=== PATIENT | male | born 1975 | race Two or more races ===

== ENCOUNTER 2020-09-28 14:07 | Inpatient (IN) | payer BC, SELFPAY ==
[2020-09-28] VITALS (15 sets, daily range): BP systolic 125–219; BP diastolic 89–124; PULSE 74–108; RESP 16–20; TEMP 36.4–36.6; O2SAT 96–98; BMI 32.3
--- NOTE | 2020-09-28 14:25 | ED.GENADULT ---
HPI - General Adult General Chief complaint: Chest Pain <DUC Stallings - Last Filed: 09/28/20 14:29> Stated complaint: high blood pressure,covid test pending <DUC Stallings - Last Filed: 09/28/20 14:29> Time Seen by Provider: 09/28/20 14:25 <DUC Stallings - Last Filed: 09/28/20 14:29> Source: patient <Yasmin Limon MD - Last Filed: 09/28/20 23:23> Mode of arrival: ambulatory <Yasmin Limon MD - Last Filed: 09/28/20 23:23> Limitations: no limitations <Yasmin Limon MD - Last Filed: 09/28/20 23:23> History of Present Illness HPI narrative: Patient was sent to the emergency room from [facility]. Patient states he went to [facility] to get a COVID test that he needs for work. Patient states he is asymptomatic, has no chest pain, no shortness of breath, no respiratory symptoms. Patient states that any time he feels some chest discomfort is if he is wearing a mask, but he is not wearing it, has no symptoms at all. When he arrived to the emergency room, it was noted that the patient has a high blood pressure. Patient has not been seen by a doctor in many years, has no past medical history, he was not aware that he has high blood pressure. <Yasmin Limon MD - Last Filed: 09/28/20 23:23> MD complaint: COVID swab, asymptomatic high blood pressure <Yasmin Limon MD - Last Filed: 09/28/20 23:23> Related Data Allergies/adverse reactions: Allergies Allergy/AdvReac Type Severity Reaction Status Date / Time No Known Allergies Allergy Verified 09/28/20 14:24 <DUC Stallings - Last Filed: 09/28/20 14:29> Review of Systems Review of Systems: Constitutional : No Weight loss, No Fever, No Chills, No Night Sweats, No Fatigue, No Malaise ENT/Mouth : No Hearing loss, No Ear Pain, No Nasal Congestion, No Sinus Pain, No Hoarseness, No sore throat, No Rhinorrhea, No Swallowing Difficulty Eyes: No Eye Pain, No Swelling, No Redness, No Foreign Body, No Discharge, No Vision Changes Cardiovascular : Mild central chest pain only while wearing a mask, No SOB, No Dyspnea on Exertion, No Orthopnea, No Edema, No Palpitations Respiratory : No Cough, No Sputum, No Wheezing, No Smoke Exposure, No Dyspnea Gastrointestinal : No Nausea, No Vomiting, No Diarrhea, No Constipation, No abdominal Pain, No Hematochezia, No Melena Genitourinary : no irregular bleeding, No Dysuria, No Urinary Frequency, No Hematuria, No Urinary Incontinence, No Urgency, No Flank Pain, No Urinary Flow Changes, No Hesitancy Musculoskeletal : No joint pain, No Myalgias, No Joint Swelling Skin : No Skin Lesions, No rash Neuro : No Weakness, No Numbness, No Paresthesias, No Loss of Consciousness, No Dizziness, No Headache Psych : No Anxiety/Panic, No Depression, No SI/HI/AH/VH, No Social Issues, Heme/Lymph: No Bruising, No Bleeding,No Lymphadenopathy Endocrine : No Polyuria, No Polydipsia, No Temperature Intolerance <Yasmin Limon MD - Last Filed: 09/28/20 23:23> [facility] Past Medical History Medical History: Medical History Healthy adult <DUC Stallings - Last Filed: 09/28/20 14:29> Social History Social History: Social History Alcohol intake: never Smoking Status: Never smoker Use of substances other than those prescribed or required for medical reasons: No Advance Directives: No Advance Directives Information Provided: Yes <DUC Stallings - Last Filed: 09/28/20 14:29> Physical Exam Vital Signs: Vital Signs: Last Vital Signs Temp 98 F 09/28/20 19:10 Pulse 86 09/28/20 22:39 Resp 16 09/28/20 22:20 BP 206/124 H 09/28/20 22:39 Pulse Ox 96 09/28/20 22:18 Body Mass Index 32.3 <DUC Stallings - Last Filed: 09/28/20 14:29> Vital Signs: Last Vital Signs Temp 98 F 09/28/20 19:10 Pulse 86 09/28/20 22:39 Resp 16 09/28/20 22:20 BP 206/124 H 09/28/20 22:39 Pulse Ox 96 09/28/20 22:18 Body Mass Index 32.3 <Yasmin Limon MD - Last Filed: 09/28/20 23:23> Appearance: Alert. Oriented X3. No acute distress. Eyes: Pupils equal, round and reactive to light. ENT: Pharynx normal. Neck: Normal inspection. Neck supple. No lymph nodes noted. No crepitus CVS: Normal heart rate and rhythm. Pulses normal. Normal S1 and S2 Respiratory: No respiratory distress. Breath sounds normal. No Wheezing. No rales Abdomen: Soft and nontender. No rigidity. No distention. good BS x4 Skin: Skin warm and dry. Normal skin color. Normal skin turgor. Extremities: No lower extremity edema. No lower extremity edema. No Lacerations. No Rash Neuro: Oriented X 3. No motor deficit. No sensory deficit. Moving all extermities. No slurred speech. <Yasmin Limon MD - Last Filed: 09/28/20 23:23> Course Course Course Narrative: 45 y/o male with history of former alcohol use, former smoker who presents with mild chest discomfort (3/10) x3 days (worse when wearing a mask) and severe HTN that was found at [facility] today. Presented there for COVID swab after potential exposure 6 days ago. BP 218/120 there - BP 219/124. HR 104. He appears well. EKG, labs ordered. Management per primary provider in the ED. <DUC Stallings - Last Filed: 09/28/20 14:29> Patient's blood pressure has been uncontrolled. Patient received 2 doses of 100 mg p.o. labetalol, blood pressure did not improve, 50 mg of hydralazine p.o., but pressure did not improve, 10 mg of IV labetalol, blood pressure actually increased to 212/112. Patient has now a nitro paste patch and is on IV hydralazine. Patient is asymptomatic. However, his BNP is 500 and he does EKG changes in leads aVL , V5 and V6. Patient does not want to stay in the hospital, I discussed with the patient the risks of having a blood pressure this high along with new onset signs of heart failure and EKG changes. Patient grudgingly accepted to stay for admission. I discussed the above-mentioned with our hospitalist, Dr. Clarke admitted the patient pending blood pressure control to an acceptable level (180 systolic) for floor admission <Yasmin Limon MD - Last Filed: 09/28/20 23:23> Medical Decision Making Lab Data Result diagrams: : 09/28/20 16:17 09/28/20 16:17 <DUC Stallings - Last Filed: 09/28/20 14:29> Labs: Lab Results 09/28/20 09/28/20 09/28/20 Range/Units 16:17 16:17 16:17 WBC 8.0 (4.8-10.8) X10*3/uL RBC 5.72 (4.60-5.80) X10*6/uL Hgb 16.6 (14.0-18.0) g/dl Hct 49.7 (42-52) % MCV 86.9 (80-98) fL MCH 29.0 (27.0-33.0) pg MCHC 33.4 (31.0-36.0) g/dl RDW 13.2 (11.0-16.0) % Plt Count 180 (160-400) X10*3/uL MPV 12.4 (9.4-12.4) fL Immature Gran % (Auto) Cancelled Neut % (Auto) Cancelled Lymph % (Auto) Cancelled [place] % (Auto) Cancelled Eos % (Auto) Cancelled Baso % (Auto) Cancelled Lymph # (Auto) Cancelled [place] # (Auto) Cancelled Eos # (Auto) Cancelled Baso # (Auto) Cancelled Abs Immat Gran (auto) Cancelled Absolute Neuts (auto) Cancelled Absolute Nucleated RBC 0.000 (0.0-0.012) X10*3/uL Nucleated RBC % (auto) 0.0 (0.0-0.2) /100WBC Neutrophils % (Manual) 75 H (45-73) % Band Neutrophils % 0 L (3-5) % Lymphocytes % (Manual) 18 L (20-40) % Monocytes % (Manual) 7 (2-11) % Abs Neuts (Manual) 6.0 (2.2-7.9) X10*3/uL Lymphocytes # (Manual) 1.4 (0.6-4.8) X10*3/uL Monocytes # (Manual) 0.6 (0.0-1.2) X10*3/uL Platelet Estimate NORMAL (NORMAL) Plt Morphology Comment NORMAL RBC Morphology NORMAL Hold Blue Top SEE NOTE Sodium 139 (135-145) mmol/L Potassium 3.4 (3.3-5.1) mmol/l Chloride 103 (96-108) mmol/L Carbon Dioxide 27 (22-29) mmol/L Anion Gap 12 (12-20) BUN 16 (9-16) mg/dL Creatinine 1.16 (0.5-1.4) mg/dL Estim Creat Clear Calc 95.2 Estimated GFR > 60 Random Glucose 98 (60-115) mg/dL Calcium 8.8 (8.4-10.2) mg/dL Magnesium 2.3 (1.6-2.6) mg/dL Total Bilirubin 0.3 (0.0-1.0) mg/dL Direct Bilirubin 0.2 (0.0-0.5) mg/dL AST 16 (5-37) U/L ALT 9 (0-40) U/L Alkaline Phosphatase 82 (39-117) U/L Troponin I High Sens (<3.5-35.0) ng/L B-Natriuretic Peptide (<100) pg/mL Total Protein 7.2 (6.5-8.0) g/dL Albumin 4.3 (3.5-5.0) g/dL Coronavirus (PCR) (Negative) Influenza Type A (PCR) (Negative) Influenza Type B (PCR) (Negative) RSV RNA Qual (PCR) (Negative) 09/28/20 09/28/20 09/28/20 Range/Units 16:17 16:17 16:17 WBC (4.8-10.8) X10*3/uL RBC (4.60-5.80) X10*6/uL Hgb (14.0-18.0) g/dl Hct (42-52) % MCV (80-98) fL MCH (27.0-33.0) pg MCHC (31.0-36.0) g/dl RDW (11.0-16.0) % Plt Count (160-400) X10*3/uL MPV (9.4-12.4) fL Immature Gran % (Auto) Neut % (Auto) Lymph % (Auto) [place] % (Auto) Eos % (Auto) Baso % (Auto) Lymph # (Auto) [place] # (Auto) Eos # (Auto) Baso # (Auto) Abs Immat Gran (auto) Absolute Neuts (auto) Absolute Nucleated RBC (0.0-0.012) X10*3/uL Nucleated RBC % (auto) (0.0-0.2) /100WBC Neutrophils % (Manual) (45-73) % Band Neutrophils % (3-5) % Lymphocytes % (Manual) (20-40) % Monocytes % (Manual) (2-11) % Abs Neuts (Manual) (2.2-7.9) X10*3/uL Lymphocytes # (Manual) (0.6-4.8) X10*3/uL Monocytes # (Manual) (0.0-1.2) X10*3/uL Platelet Estimate (NORMAL) Plt Morphology Comment RBC Morphology Hold Blue Top Sodium (135-145) mmol/L Potassium (3.3-5.1) mmol/l Chloride (96-108) mmol/L Carbon Dioxide (22-29) mmol/L Anion Gap (12-20) BUN (9-16) mg/dL Creatinine (0.5-1.4) mg/dL Estim Creat Clear Calc Estimated GFR Random Glucose (60-115) mg/dL Calcium (8.4-10.2) mg/dL Magnesium (1.6-2.6) mg/dL Total Bilirubin (0.0-1.0) mg/dL Direct Bilirubin (0.0-0.5) mg/dL AST (5-37) U/L ALT (0-40) U/L Alkaline Phosphatase (39-117) U/L Troponin I High Sens 42.4 H (<3.5-35.0) ng/L B-Natriuretic Peptide 520 H (<100) pg/mL Total Protein (6.5-8.0) g/dL Albumin (3.5-5.0) g/dL Coronavirus (PCR) NEGATIVE (Negative) Influenza Type A (PCR) NEGATIVE (Negative) Influenza Type B (PCR) NEGATIVE (Negative) RSV RNA Qual (PCR) NEGATIVE (Negative) 09/28/20 Range/Units 21:14 WBC (4.8-10.8) X10*3/uL RBC (4.60-5.80) X10*6/uL Hgb (14.0-18.0) g/dl Hct (42-52) % MCV (80-98) fL MCH (27.0-33.0) pg MCHC (31.0-36.0) g/dl RDW (11.0-16.0) % Plt Count (160-400) X10*3/uL MPV (9.4-12.4) fL Immature Gran % (Auto) Neut % (Auto) Lymph % (Auto) [place] % (Auto) Eos % (Auto) Baso % (Auto) Lymph # (Auto) [place] # (Auto) Eos # (Auto) Baso # (Auto) Abs Immat Gran (auto) Absolute Neuts (auto) Absolute Nucleated RBC (0.0-0.012) X10*3/uL Nucleated RBC % (auto) (0.0-0.2) /100WBC Neutrophils % (Manual) (45-73) % Band Neutrophils % (3-5) % Lymphocytes % (Manual) (20-40) % Monocytes % (Manual) (2-11) % Abs Neuts (Manual) (2.2-7.9) X10*3/uL Lymphocytes # (Manual) (0.6-4.8) X10*3/uL Monocytes # (Manual) (0.0-1.2) X10*3/uL Platelet Estimate (NORMAL) Plt Morphology Comment RBC Morphology Hold Blue Top Sodium (135-145) mmol/L Potassium (3.3-5.1) mmol/l Chloride (96-108) mmol/L Carbon Dioxide (22-29) mmol/L Anion Gap (12-20) BUN (9-16) mg/dL Creatinine (0.5-1.4) mg/dL Estim Creat Clear Calc Estimated GFR Random Glucose (60-115) mg/dL Calcium (8.4-10.2) mg/dL Magnesium (1.6-2.6) mg/dL Total Bilirubin (0.0-1.0) mg/dL Direct Bilirubin (0.0-0.5) mg/dL AST (5-37) U/L ALT (0-40) U/L Alkaline Phosphatase (39-117) U/L Troponin I High Sens 46.8 H (<3.5-35.0) ng/L B-Natriuretic Peptide (<100) pg/mL Total Protein (6.5-8.0) g/dL Albumin (3.5-5.0) g/dL Coronavirus (PCR) (Negative) Influenza Type A (PCR) (Negative) Influenza Type B (PCR) (Negative) RSV RNA Qual (PCR) (Negative) <DUC Stallings - Last Filed: 09/28/20 14:29> Lab Results 09/28/20 09/28/20 09/28/20 Range/Units 16:17 16:17 16:17 WBC 8.0 (4.8-10.8) X10*3/uL RBC 5.72 (4.60-5.80) X10*6/uL Hgb 16.6 (14.0-18.0) g/dl Hct 49.7 (42-52) % MCV 86.9 (80-98) fL MCH 29.0 (27.0-33.0) pg MCHC 33.4 (31.0-36.0) g/dl RDW 13.2 (11.0-16.0) % Plt Count 180 (160-400) X10*3/uL MPV 12.4 (9.4-12.4) fL Immature Gran % (Auto) Cancelled Neut % (Auto) Cancelled Lymph % (Auto) Cancelled [place] % (Auto) Cancelled Eos % (Auto) Cancelled Baso % (Auto) Cancelled Lymph # (Auto) Cancelled [place] # (Auto) Cancelled Eos # (Auto) Cancelled Baso # (Auto) Cancelled Abs Immat Gran (auto) Cancelled Absolute Neuts (auto) Cancelled Absolute Nucleated RBC 0.000 (0.0-0.012) X10*3/uL Nucleated RBC % (auto) 0.0 (0.0-0.2) /100WBC Neutrophils % (Manual) 75 H (45-73) % Band Neutrophils % 0 L (3-5) % Lymphocytes % (Manual) 18 L (20-40) % Monocytes % (Manual) 7 (2-11) % Abs Neuts (Manual) 6.0 (2.2-7.9) X10*3/uL Lymphocytes # (Manual) 1.4 (0.6-4.8) X10*3/uL Monocytes # (Manual) 0.6 (0.0-1.2) X10*3/uL Platelet Estimate NORMAL (NORMAL) Plt Morphology Comment NORMAL RBC Morphology NORMAL Hold Blue Top SEE NOTE Sodium 139 (135-145) mmol/L Potassium 3.4 (3.3-5.1) mmol/l Chloride 103 (96-108) mmol/L Carbon Dioxide 27 (22-29) mmol/L Anion Gap 12 (12-20) BUN 16 (9-16) mg/dL Creatinine 1.16 (0.5-1.4) mg/dL Estim Creat Clear Calc 95.2 Estimated GFR > 60 Random Glucose 98 (60-115) mg/dL Calcium 8.8 (8.4-10.2) mg/dL Magnesium 2.3 (1.6-2.6) mg/dL Total Bilirubin 0.3 (0.0-1.0) mg/dL Direct Bilirubin 0.2 (0.0-0.5) mg/dL AST 16 (5-37) U/L ALT 9 (0-40) U/L Alkaline Phosphatase 82 (39-117) U/L Troponin I High Sens (<3.5-35.0) ng/L B-Natriuretic Peptide (<100) pg/mL Total Protein 7.2 (6.5-8.0) g/dL Albumin 4.3 (3.5-5.0) g/dL Coronavirus (PCR) (Negative) Influenza Type A (PCR) (Negative) Influenza Type B (PCR) (Negative) RSV RNA Qual (PCR) (Negative) 09/28/20 09/28/20 09/28/20 Range/Units 16:17 16:17 16:17 WBC (4.8-10.8) X10*3/uL RBC (4.60-5.80) X10*6/uL Hgb (14.0-18.0) g/dl Hct (42-52) % MCV (80-98) fL MCH (27.0-33.0) pg MCHC (31.0-36.0) g/dl RDW (11.0-16.0) % Plt Count (160-400) X10*3/uL MPV (9.4-12.4) fL Immature Gran % (Auto) Neut % (Auto) Lymph % (Auto) [place] % (Auto) Eos % (Auto) Baso % (Auto) Lymph # (Auto) [place] # (Auto) Eos # (Auto) Baso # (Auto) Abs Immat Gran (auto) Absolute Neuts (auto) Absolute Nucleated RBC (0.0-0.012) X10*3/uL Nucleated RBC % (auto) (0.0-0.2) /100WBC Neutrophils % (Manual) (45-73) % Band Neutrophils % (3-5) % Lymphocytes % (Manual) (20-40) % Monocytes % (Manual) (2-11) % Abs Neuts (Manual) (2.2-7.9) X10*3/uL Lymphocytes # (Manual) (0.6-4.8) X10*3/uL Monocytes # (Manual) (0.0-1.2) X10*3/uL Platelet Estimate (NORMAL) Plt Morphology Comment RBC Morphology Hold Blue Top Sodium (135-145) mmol/L Potassium (3.3-5.1) mmol/l Chloride (96-108) mmol/L Carbon Dioxide (22-29) mmol/L Anion Gap (12-20) BUN (9-16) mg/dL Creatinine (0.5-1.4) mg/dL Estim Creat Clear Calc Estimated GFR Random Glucose (60-115) mg/dL Calcium (8.4-10.2) mg/dL Magnesium (1.6-2.6) mg/dL Total Bilirubin (0.0-1.0) mg/dL Direct Bilirubin (0.0-0.5) mg/dL AST (5-37) U/L ALT (0-40) U/L Alkaline Phosphatase (39-117) U/L Troponin I High Sens 42.4 H (<3.5-35.0) ng/L B-Natriuretic Peptide 520 H (<100) pg/mL Total Protein (6.5-8.0) g/dL Albumin (3.5-5.0) g/dL Coronavirus (PCR) NEGATIVE (Negative) Influenza Type A (PCR) NEGATIVE (Negative) Influenza Type B (PCR) NEGATIVE (Negative) RSV RNA Qual (PCR) NEGATIVE (Negative) 09/28/20 Range/Units 21:14 WBC (4.8-10.8) X10*3/uL RBC (4.60-5.80) X10*6/uL Hgb (14.0-18.0) g/dl Hct (42-52) % MCV (80-98) fL MCH (27.0-33.0) pg MCHC (31.0-36.0) g/dl RDW (11.0-16.0) % Plt Count (160-400) X10*3/uL MPV (9.4-12.4) fL Immature Gran % (Auto) Neut % (Auto) Lymph % (Auto) [place] % (Auto) Eos % (Auto) Baso % (Auto) Lymph # (Auto) [place] # (Auto) Eos # (Auto) Baso # (Auto) Abs Immat Gran (auto) Absolute Neuts (auto) Absolute Nucleated RBC (0.0-0.012) X10*3/uL Nucleated RBC % (auto) (0.0-0.2) /100WBC Neutrophils % (Manual) (45-73) % Band Neutrophils % (3-5) % Lymphocytes % (Manual) (20-40) % Monocytes % (Manual) (2-11) % Abs Neuts (Manual) (2.2-7.9) X10*3/uL Lymphocytes # (Manual) (0.6-4.8) X10*3/uL Monocytes # (Manual) (0.0-1.2) X10*3/uL Platelet Estimate (NORMAL) Plt Morphology Comment RBC Morphology Hold Blue Top Sodium (135-145) mmol/L Potassium (3.3-5.1) mmol/l Chloride (96-108) mmol/L Carbon Dioxide (22-29) mmol/L Anion Gap (12-20) BUN (9-16) mg/dL Creatinine (0.5-1.4) mg/dL Estim Creat Clear Calc Estimated GFR Random Glucose (60-115) mg/dL Calcium (8.4-10.2) mg/dL Magnesium (1.6-2.6) mg/dL Total Bilirubin (0.0-1.0) mg/dL Direct Bilirubin (0.0-0.5) mg/dL AST (5-37) U/L ALT (0-40) U/L Alkaline Phosphatase (39-117) U/L Troponin I High Sens 46.8 H (<3.5-35.0) ng/L B-Natriuretic Peptide (<100) pg/mL Total Protein (6.5-8.0) g/dL Albumin (3.5-5.0) g/dL Coronavirus (PCR) (Negative) Influenza Type A (PCR) (Negative) Influenza Type B (PCR) (Negative) RSV RNA Qual (PCR) (Negative) <Yasmin Limon MD - Last Filed: 09/28/20 23:23> Imaging Data Chest x-ray: Radiologist's impression: FINDINGS: The cardiac and mediastinal contours are normal. The lungs are clear. There is no pleural effusion or pneumothorax. There are degenerative changes of the spine. XR/XR chest 1V IMPRESSION: Unremarkable examination. <Yasmin Limon MD - Last Filed: 09/28/20 23:23> ECG Data Attestation: I personally reviewed and interpreted this ECG as follows: (Sinus rhythm, heart rate 69, QTC 443, nonspecific ST changes in leads aVL, V5 and V6) <Yasmin Limon MD - Last Filed: 09/28/20 23:23> Discharge Plan Discharge Clinical Impression: Hypertensive urgency, ST segment changes on electrocardiogram <DUC Stallings - Last Filed: 09/28/20 14:29> Patient Disposition: Admitted As Inpatient <DUC Stallings - Last Filed: 09/28/20 14:29>
--- NOTE | 2020-09-28 14:30 | ECG_ITS ---
Test Reason : CHEST PAIN Blood Pressure : / mmHG Vent. Rate : 069 BPM Atrial Rate : 069 BPM P-R Int : 184 ms QRS Dur : 104 ms QT Int : 414 ms P-R-T Axes : 059 -02 137 degrees QTc Int : 443 ms Normal sinus rhythm Left ventricular hypertrophy with repolarization abnormality Abnormal ECG No previous ECGs available Referred By: Eve Flores Electronically Signed By:DOMINGO REYNOLDS
--- NOTE | 2020-09-28 14:30 | XR_ITS ---
EXAMINATION: XR CHEST CLINICAL INFORMATION: Chest pain COMPARISON: None TECHNIQUE: Frontal view of the chest was obtained. FINDINGS: The cardiac and mediastinal contours are normal. The lungs are clear. There is no pleural effusion or pneumothorax. There are degenerative changes of the spine. XR/XR chest 1V IMPRESSION: Unremarkable examination.
[2020-09-28] MEDS: Labetalol HCL 100 MG TABLET PO ×2 (16:22→17:37)
[2020-09-28 16:27] LABS: Hematocrit 49.7 % (42-52); Hemoglobin 16.6 g/dl (14.0-18.0); Mean Corpuscular HGB Conc 33.4 g/dl (31.0-36.0); Mean Corpuscular Volume 86.9 fL (80-98); Mean Platelet Volume 12.4 fL (9.4-12.4); Platelet Count 180 X10*3/uL (160-400); Red Blood Count 5.72 X10*6/uL (4.60-5.80); Red Cell Distribution Width 13.2 % (11.0-16.0)
[2020-09-28 16:35] LABS: WBC ABN SCTR FOR CBC 1
[2020-09-28 16:49] LABS: Alanine Aminotransferase 9 U/L (0-40); Albumin Level 4.3 g/dL (3.5-5.0); Alkaline Phosphatase 82 U/L (39-117); Anion Gap 12 (12-20); Aspartate Amino Transferase 16 U/L (5-37); Bilirubin Direct 0.2 mg/dL (0.0-0.5); Bilirubin Total 0.3 mg/dL (0.0-1.0); Blood Urea Nitrogen 16 mg/dL (9-16); Calcium 8.8 mg/dL (8.4-10.2); Carbon Dioxide 27 mmol/L (22-29); Chloride 103 mmol/L (96-108); Creatinine Clr Calc Pharmacy 95.2; Estimated Glomerular Filt Rate > 60; Glucose Random 98 mg/dL (60-115); Magnesium 2.3 mg/dL (1.6-2.6); Potassium 3.4 mmol/l (3.3-5.1); Sodium 139 mmol/L (135-145); Total Protein 7.2 g/dL (6.5-8.0)
[2020-09-28 16:50] LABS: Lymphocytes Absolute Manual 1.4 X10*3/uL (0.6-4.8); Lymphocytes Percent Manual 18 % (20-40); Monocytes Absolute Manual 0.6 X10*3/uL (0.0-1.2); Monocytes Percent Manual 7 % (2-11); Neutrophils Percent Manual 75 % (45-73); Platelet Estimate NORMAL (NORMAL); Platelet Morphology Comment NORMAL; RBC Morphology NORMAL
[2020-09-28 16:52] LABS: B Type Natriuretic Peptide 520 pg/mL (<100)
[2020-09-28 16:54] LABS: Troponin-I High Sensitivity 42.4 ng/L (<3.5-35.0)
[2020-09-28 17:05] LABS: Influenza A PCR NEGATIVE (Negative); Influenza B PCR NEGATIVE (Negative); Resp Syncy Virus RNA Qual PCR NEGATIVE (Negative); SARS COV2 PCR INHOUSE NEGATIVE (Negative)
[2020-09-28 18:28] LABS: Band Neutrophils Percent 0 % (3-5)
[2020-09-28] MEDS: hydrALAZINE HCl 50 MG TABLET PO (19:06)
[2020-09-28 22:09] LABS: Troponin-I High Sensitivity 46.8 ng/L (<3.5-35.0)
[2020-09-28] MEDS: Labetalol HCL 100 MG/20 ML VIAL 10 MG IVPUSH (22:39)
[2020-09-28] MEDS: Nitroglycerin 2 % Oint 1 GM Packet 1 INCH TRANSDERMA (23:53)
[2020-09-28] MEDS: hydrALAZINE HCl 20 MG/ML VIAL IVPUSH (23:53)
[2020-09-29] VITALS (18 sets, daily range): BP systolic 152–199; BP diastolic 61–116; PULSE 87–107; RESP 13–22; TEMP 36.9–37.2; O2SAT 97–98
--- NOTE | 2020-09-29 00:05 | PC.NURSE ---
report from radha rodrigues. pt in no pain or distress, pt placed on quality assurance monitor chassis. pt awre of plans for admission.
--- NOTE | 2020-09-29 01:15 | PC.NURSE ---
pt ambulatory to bathroom with steady gait, felt hot following nitro paste administration. pt given sandwich and juice, per his request.
[2020-09-29 01:46] LABS: Glucose Urine UA NEG (NEG); Leukocyte Esterase Urine NEG (NEG); Nitrite Urine NEG (NEG); Specific Gravity - Urine 1.025 (1.005-1.025); Urine Blood NEG (NEG); Urine Ketones 5 MG/DL (NEG); Urine Protein NEG (NEG-TRACE)
[2020-09-29 01:47] LABS: Appearance Urine CLEAR; Color Urine YELLOW; UACC Culture Trigger NO
--- NOTE | 2020-09-29 02:12 | ECG_ITS ---
Test Reason : EKG CHANGE Blood Pressure : / mmHG Vent. Rate : 091 BPM Atrial Rate : 091 BPM P-R Int : 160 ms QRS Dur : 112 ms QT Int : 396 ms P-R-T Axes : 059 012 162 degrees QTc Int : 487 ms Normal sinus rhythm Left ventricular hypertrophy with repolarization abnormality Prolonged QT Abnormal ECG When compared with ECG of 28-SEP-2020 18:03, Inverted T waves have replaced nonspecific T wave abnormality in Inferior leads Referred By: Yasmin Limon Electronically Signed By:DOMINGO REYNOLDS
--- NOTE | 2020-09-29 02:26 | PC.NURSE ---
pt sitting on side of bed, pt feels nauseous.
[2020-09-29] MEDS: ondansetron HCL 4 MG/2 ML VIAL IVPUSH (02:34)
--- NOTE | 2020-09-29 06:23 | CA_ITS ---
Transthoracic Echocardiogram Patient (Last, First, Middle): Jonathan Wong, Gender: Male Date of : 1975 Age: 45 Procedure Date: 09/29/2020 Procedure Type: Transthoracic Echocardiogram Location: ER Height: 177.8 cm Weight: 102.06 kg BSA: 2.19 m2 Heart Rate: bpm BP: 158 / 99 mmHg [employer] Operator: Referring MD: Noemi Clarke MD Symptoms: CHF exacerbation Study Quality: Good ECG Rhythm: Sinus Conclusions: - The left ventricular systolic function is mildly decreased. The visually estimated ejection fraction is between 45-50%. - There is severely increased left ventricular wall thickness. - No obvious valvular pathology seen on this study. Findings Left Ventricle Normal left ventricular cavity size. There is severely increased left ventricular wall thickness. The left ventricular systolic function is mildly decreased. The visually estimated ejection fraction is between 45-50%. E/E prime ratio is between 8 and 15 consistent with indeterminate filling pressures. Evidence suggests grade I (mild) diastolic dysfunction. Right Ventricle Normal right ventricular cavity size and systolic function. Atria The left atrium is mildly dilated. The right atrium is normal in size. Aortic Valve There is a normal trileaflet aortic valve. There is no aortic valve stenosis. There is no aortic valve regurgitation. Mitral Valve The mitral valve appears normal. There is no mitral valve regurgitation. There is no mitral valve stenosis. Pulmonic Valve The pulmonic valve was not well visualized. Tricuspid Valve Normal tricuspid valve structure. There is trace tricuspid valve regurgitation. The pulmonary artery systolic pressure is normal. Great Vessels The aortic annulus, sinuses of valsalva, and asc aorta are normal in size. Venous The inferior vena cava is normal in size and collapses greater than 50% with inspiration. Pericardium/Pleural There is no evidence of pericardial effusion. Prior Study Comparison No prior study available for comparison. Recommendations, Care & Conclusions No obvious valvular pathology seen on this study. Measurements 2D Linear Measurements IVSd: 1.93 0.6-0.9/0.6-1.0 cm LVIDd: 5.68 3.9-5.3/4.2-5.9 cm LVIDd Index: 2.59 2.4-3.2/2.2-3.1 cm/m2 LVIDs: 4.48 2.0-3.6 cm LVPWd: 1.96 0.7-1.1 cm Ao Root: 3.50 2.1-3.5 cm LA Diam: 4.50 2.7-3.8/3.0-4.0 cm LAIDs Index: 2.05 1.5-2.3 cm/m2 LV Mass: 720.95 67-162/88-224 g LV Mass Index: 329.20 43-95/49-115 g/m2 LVOT Diam: 2.60 3.0+(-)1.3 cm 2D Systolic Function EF 4C: 49.80 >55% EF 2C: 39.90 >55% EF BiP: 45.10 >55% Mitral Valve MV Pk E: 0.62 MV PK A: 0.94 MV Decel Time: 134.00 E/A: 0.70 E'Lateral: 5.71 E'Medial: 4.93 E/E' Med: 12.60 E/E' Lat: 10.90 PHT: 39.00 MVA PHT: 5.64 Decel Butler: 4.64 Aortic Valve AoV Pk John: 1.52 AoV Mn John: 1.14 AoV VTI: 0.27 AoV Pk Grad: 9.00 Aov Mn Grad: 6.00 SIM Cont.VTI: 4.37 LVOT LVOT Pk John: 1.00 LVOT Mn John: 0.60 LVOT VTI: 0.22 LVOT Pk Grad: 4.00 LVOT Mn Grad: 2.00 LVOT Diam: 2.60 LVOT Area: 5.31 Diastolic Function MV Pk E: 0.62 MV Pk A: 0.94 E/A: 0.70 E'Medial: 4.93 E/E' Med: 12.60 E' Laterial: 5.71 E/E' Lat: 10.90 Tricuspid Valve TR Pk John: 1.73 TR Pk Grad: 12.00 RA Press: 3.00 RVSP: 15.00 Great Vessels Aorta Ao Root-2D: 3.50 2.0-3.7 cm Ao Asc: 3.60 2.1-3.4 cm Pulmonary Valve PV Pk John: 1.18 Peak PV Grad: 6.00 Updated in Other Vendor System with Status of Final Lexx Banks MD electronically signed on 09/29/2020 11:45:43 AM with status of Final
--- NOTE | 2020-09-29 06:37 | PC.NURSE ---
HOSPITALIST CALLED AND ASKED US TO REMOVE NITRO PASTE, PT WILL START TAKING LISINIPRIL 5MG.
[2020-09-29] MEDS: Enoxaparin Sodium 40 MG/0.4 ML SYRINGE SUBCUT (07:23)
--- NOTE | 2020-09-29 07:43 | PC.NURSE ---
report taken from paresh rodrigues pt here for hypertension uncontrolled. no known medication hx, admitted as inpt. vss, medicated per emar. pt ate all of breakfast, appears in good spirits, all needs met at this time. wctm.
--- NOTE | 2020-09-29 08:24 | PM.IMHP ---
History of Present Illness Date of Service: 09/29/20 Chief Complaint: hypertension This is a 45-year-old male with no significant past medical history who presents to the hospital after a visit to urgent care for routine COVID test to return to work found him to be hypertensive. Patient reports that he has not been to a doctor since he was a teenager. He has has been having complaints of shortness of breath on exertion and fatigue but otherwise has no lower extremity swelling, no orthopnea, no PND, he has no headache, no change in vision, no chest pain, no palpitations, he has no dizziness, no urinary symptoms, no suprapubic or flank pain. Per urgent care report patient had a blood pressure of 200/124 on the arrival to their office. On arrival to our ED patient had blood pressure 178/99, heart rate of 82, respiratory rate of 16, satting 97% on room air. He received multiple doses of PO antihypertensive, and also receive nitro paste as well as IV hydralazine with improvement of his BP Labs sig for trop of 42.4->46.8, and BNP of 520 CXR unremarkable EKG shows ST depressions and t-wave inversions in the lateral leads [id number] Past medical history: Denies Past surgical history: Denies Family history: Denies Social history: Comes from home, former tobacco user, currently denies tobacco alcohol or illicit drugs [facility] Medical History Healthy adult Social History Alcohol intake: never Smoking Status: Never smoker Use of substances other than those prescribed or required for medical reasons: No Advance Directives: No Advance Directives Information Provided: Yes Meds Allergies Allergy/AdvReac Type Severity Reaction Status Date / Time seafood Allergy Hives Verified 09/29/20 00:04 Home Medications Medication Instructions Recorded Confirmed Type No Known Home Meds 09/29/20 09/29/20 History Physical Exam Vital Signs and Narrative: Vital Signs: Last Vital Signs Temp 98 F 09/28/20 19:10 Pulse 90 09/29/20 06:36 Resp 13 09/29/20 06:36 BP 158/99 H 09/29/20 06:36 Pulse Ox 97 09/29/20 06:36 Body Mass Index 32.3 Const: General: cooperative and no acute distress Orientation/consciousness: patient oriented x3 Eyes: General: appearance normal, both eyes and all related structures Resp: Effort & Inspection: normal respiratory effort and able to speak in complete sentences Cardio: Rate: regular rate Rhythm: regular rhythm GI: Palpation (GI): Soft to palpation Auscultation: normal bowel sounds Skin: General skin exam: no rashes or lesions noted Neuro: General: patient oriented x3 Cognition (Neuro): normal cognition Extrem: General: Yes normal to inspection and Yes no pedal edema Results Labs CBC and Chem 7: 09/28/20 16:17 09/28/20 16:17 Labs: Laboratory Results - last 24 hr 09/28/20 09/28/20 09/28/20 16:17 16:17 16:17 MCV 86.9 MCH 29.0 MCHC 33.4 RDW 13.2 Plt Count 180 MPV 12.4 Immature Gran % (Auto) Cancelled Neut % (Auto) Cancelled Lymph % (Auto) Cancelled [place] % (Auto) Cancelled Eos % (Auto) Cancelled Baso % (Auto) Cancelled Lymph # (Auto) Cancelled [place] # (Auto) Cancelled Eos # (Auto) Cancelled Baso # (Auto) Cancelled Abs Immat Gran (auto) Cancelled Absolute Neuts (auto) Cancelled Absolute Nucleated RBC 0.000 Nucleated RBC % (auto) 0.0 Neutrophils % (Manual) 75 H Band Neutrophils % 0 L Lymphocytes % (Manual) 18 L Monocytes % (Manual) 7 Abs Neuts (Manual) 6.0 Lymphocytes # (Manual) 1.4 Monocytes # (Manual) 0.6 Platelet Estimate NORMAL Plt Morphology Comment NORMAL RBC Morphology NORMAL Hold Blue Top SEE NOTE Anion Gap 12 Estim Creat Clear Calc 95.2 Estimated GFR > 60 Random Glucose 98 Calcium 8.8 Magnesium 2.3 Total Bilirubin 0.3 Direct Bilirubin 0.2 AST 16 ALT 9 Alkaline Phosphatase 82 Troponin I High Sens B-Natriuretic Peptide Total Protein 7.2 Albumin 4.3 Urine Color Urine Appearance Urine pH Ur Specific [place] Urine Protein Urine Glucose (UA) Urine Ketones Urine Blood Urine Nitrite Ur Leukocyte Esterase Coronavirus (PCR) Influenza Type A (PCR) Influenza Type B (PCR) RSV RNA Qual (PCR) 09/28/20 09/28/20 09/28/20 16:17 16:17 16:17 MCV MCH MCHC RDW Plt Count MPV Immature Gran % (Auto) Neut % (Auto) Lymph % (Auto) [place] % (Auto) Eos % (Auto) Baso % (Auto) Lymph # (Auto) [place] # (Auto) Eos # (Auto) Baso # (Auto) Abs Immat Gran (auto) Absolute Neuts (auto) Absolute Nucleated RBC Nucleated RBC % (auto) Neutrophils % (Manual) Band Neutrophils % Lymphocytes % (Manual) Monocytes % (Manual) Abs Neuts (Manual) Lymphocytes # (Manual) Monocytes # (Manual) Platelet Estimate Plt Morphology Comment RBC Morphology Hold Blue Top Anion Gap Estim Creat Clear Calc Estimated GFR Random Glucose Calcium Magnesium Total Bilirubin Direct Bilirubin AST ALT Alkaline Phosphatase Troponin I High Sens 42.4 H B-Natriuretic Peptide 520 H Total Protein Albumin Urine Color Urine Appearance Urine pH Ur Specific [place] Urine Protein Urine Glucose (UA) Urine Ketones Urine Blood Urine Nitrite Ur Leukocyte Esterase Coronavirus (PCR) NEGATIVE Influenza Type A (PCR) NEGATIVE Influenza Type B (PCR) NEGATIVE RSV RNA Qual (PCR) NEGATIVE 09/28/20 09/29/20 21:14 01:30 MCV MCH MCHC RDW Plt Count MPV Immature Gran % (Auto) Neut % (Auto) Lymph % (Auto) [place] % (Auto) Eos % (Auto) Baso % (Auto) Lymph # (Auto) [place] # (Auto) Eos # (Auto) Baso # (Auto) Abs Immat Gran (auto) Absolute Neuts (auto) Absolute Nucleated RBC Nucleated RBC % (auto) Neutrophils % (Manual) Band Neutrophils % Lymphocytes % (Manual) Monocytes % (Manual) Abs Neuts (Manual) Lymphocytes # (Manual) Monocytes # (Manual) Platelet Estimate Plt Morphology Comment RBC Morphology Hold Blue Top Anion Gap Estim Creat Clear Calc Estimated GFR Random Glucose Calcium Magnesium Total Bilirubin Direct Bilirubin AST ALT Alkaline Phosphatase Troponin I High Sens 46.8 H B-Natriuretic Peptide Total Protein Albumin Urine Color YELLOW Urine Appearance CLEAR Urine pH 6.0 Ur Specific [place] 1.025 Urine Protein NEG Urine Glucose (UA) NEG Urine Ketones 5 Urine Blood NEG Urine Nitrite NEG Ur Leukocyte Esterase NEG Coronavirus (PCR) Influenza Type A (PCR) Influenza Type B (PCR) RSV RNA Qual (PCR) Imaging Radiologist's Impressions: Impressions Chest X-Ray 09/28/20 14:30 IMPRESSION: Unremarkable examination. Assessment and Plan (1) Hypertensive urgency: Status: Acute (2) ST segment changes on electrocardiogram: Status: Acute (3) Elevated troponin: Status: Acute 45-year-old male with no significant past medical history that he no off presents to the hospital with hypertensive crisis found to have elevated troponin and elevated BNP # hypertensive emergency - presents to the hospital with BP of 2 10s over 124 hour at urgent care, here blood pressure 1 up to 200/124 - patient received multiple doses of p.o. labetalol, hydralazine, as well as nitropaste as well as IV hydralazine with improvement in his blood pressure - patient has elevated troponin, BNP Plan: - will start him on lisinopril low-dose - echocardiogram - consult cardiology # elevated troponin - most likely type 2 in the setting of hypertensive crisis - as above with no chest pain - EKG shows ST depressions in V5-V6 Plan: - echocardiogram - consult cardiology # elevated BNP - has no evidence of CHF exacerbation - will obtain echocardiogram - as patient has no evidence of CHF and no shortness of breath,or hypoxia will hold off on starting him on diuretic pending cardiology recommendation DVT prophylaxis: Lovenox
--- NOTE | 2020-09-29 09:41 | PC.NURSE ---
dr ndiaye at bedside for eval.
--- NOTE | 2020-09-29 09:49 | PC.NURSE ---
retail salesworker at bedside for eval.
--- NOTE | 2020-09-29 10:20 | PC.NURSE ---
perinatal tech at bedside for us.
--- NOTE | 2020-09-29 10:31 | PC.NURSE ---
echo completed at bedside.
--- NOTE | 2020-09-29 10:38 | P.CONCA_ITS ---
History of Present Illness History of Present Illness Date of Service: 09/29/20 Consult reason: hypertension Chief complaint: Hypertensive emergency Narrative: This is a cardiology consultation for uncontrolled hypertension. Patient has not really seen a doctor for many years. He apparently went for routine COVID test to return to work. At that time, he was apparently found to be markedly hypertensive with systolics in the 200s and diastolics of almost 120 mm Hg. Subsequently, he was sent to the ER. Patient states that he had a very vague chest pain in the substernal area but no other complaints. Per H and P, he was also having shortness of breath but when I questioned him, he states that he felt okay from that regard. Otherwise no known cardiac problems like coronary disease or myocardial infarction or anything else. He states that he was markedly overweight and has lost more than 50 lb. Otherwise he works in [employer] company. No illicit drugs. Review of Systems Review of Systems: Yes all other systems are reviewed and are negative Cardiovascular: Cardiovascular: Reports as per HPI, Reports no additional cardiovascular complaints, Denies acrocyanosis, Denies cool extremities, Denies painful fingertips, Reports chest pain, Denies chest pain at rest, Denies diaphoresis, Denies syncope, Denies irregular heart rhythm, Denies claudication, Denies leg edema, Denies lightheadedness, Denies palpitations and Reports dyspne a Respiratory: Respiratory: Reports dyspnea Neurologic: Denies syncope Endocrine: Endocrine: Denies palpitations PMFSH Past Medical History Medical History Healthy adult Family History Pertinent family history: No significant family history for cardiac per patient. Social History Social History Alcohol intake: never Smoking Status: Never smoker Use of substances other than those prescribed or required for medical reasons: No Advance Directives: No Advance Directives Information Provided: Yes Meds Allergies Allergy/AdvReac Type Severity Reaction Status Date / Time seafood Allergy Hives Verified 09/29/20 00:04 Home Medications Medication Instructions Recorded Confirmed Type No Known Home Meds 09/29/20 09/29/20 History Physical Exam Vital Signs: Vital Signs: Last Vital Signs Temp 98 F 09/28/20 19:10 Pulse 91 09/29/20 08:59 Resp 13 09/29/20 06:36 BP 158/99 H 09/29/20 08:59 Pulse Ox 97 09/29/20 06:36 Body Mass Index 32.3 Const: General: cooperative, comfortable and no acute distress Orientation/consciousness: patient oriented x3 HENMT: Other: Unremarkable Neck: Neck: Yes normal visual inspection Chest: Chest palpation & inspection: normal inspection of the chest Resp: Auscultation: clear to auscultation bilaterally, no crackles and no wheezes Cardio: Jugular venous distension: no JVD Palpation: normal PMI Heart sounds: S1 normal heart sound present, S2 normal heart sound present, no gallops, Murmur heart sound present systolic early, I/ and at the right sternal border and no rubs GI: Palpation (GI): Soft to palpation Back/Spine/Pelvis: Other: unremarkable Skin: General skin exam: no rashes or lesions noted Neuro: General: patient oriented x3 Extrem: General: Yes no clubbing, cyanosis or edema Psych: Mental Status: mental status grossly normal Results Labs and Meds Result diagrams: 09/28/20 16:17 09/28/20 16:17 Lab results: Laboratory Results - last 24 hr 09/28/20 09/28/20 09/28/20 16:17 16:17 16:17 WBC 8.0 RBC 5.72 Hgb 16.6 Hct 49.7 MCV 86.9 MCH 29.0 MCHC 33.4 RDW 13.2 Plt Count 180 MPV 12.4 Immature Gran % (Auto) Cancelled Neut % (Auto) Cancelled Lymph % (Auto) Cancelled [place] % (Auto) Cancelled Eos % (Auto) Cancelled Baso % (Auto) Cancelled Lymph # (Auto) Cancelled [place] # (Auto) Cancelled Eos # (Auto) Cancelled Baso # (Auto) Cancelled Abs Immat Gran (auto) Cancelled Absolute Neuts (auto) Cancelled Absolute Nucleated RBC 0.000 Nucleated RBC % (auto) 0.0 Neutrophils % (Manual) 75 H Band Neutrophils % 0 L Lymphocytes % (Manual) 18 L Monocytes % (Manual) 7 Abs Neuts (Manual) 6.0 Lymphocytes # (Manual) 1.4 Monocytes # (Manual) 0.6 Platelet Estimate NORMAL Plt Morphology Comment NORMAL RBC Morphology NORMAL Hold Blue Top SEE NOTE Sodium 139 Potassium 3.4 Chloride 103 Carbon Dioxide 27 Anion Gap 12 BUN 16 Creatinine 1.16 Estim Creat Clear Calc 95.2 Estimated GFR > 60 Random Glucose 98 Calcium 8.8 Magnesium 2.3 Total Bilirubin 0.3 Direct Bilirubin 0.2 AST 16 ALT 9 Alkaline Phosphatase 82 Troponin I High Sens B-Natriuretic Peptide Total Protein 7.2 Albumin 4.3 Urine Color Urine Appearance Urine pH Ur Specific [place] Urine Protein Urine Glucose (UA) Urine Ketones Urine Blood Urine Nitrite Ur Leukocyte Esterase Coronavirus (PCR) Influenza Type A (PCR) Influenza Type B (PCR) RSV RNA Qual (PCR) 09/28/20 09/28/20 09/28/20 16:17 16:17 16:17 WBC RBC Hgb Hct MCV MCH MCHC RDW Plt Count MPV Immature Gran % (Auto) Neut % (Auto) Lymph % (Auto) [place] % (Auto) Eos % (Auto) Baso % (Auto) Lymph # (Auto) [place] # (Auto) Eos # (Auto) Baso # (Auto) Abs Immat Gran (auto) Absolute Neuts (auto) Absolute Nucleated RBC Nucleated RBC % (auto) Neutrophils % (Manual) Band Neutrophils % Lymphocytes % (Manual) Monocytes % (Manual) Abs Neuts (Manual) Lymphocytes # (Manual) Monocytes # (Manual) Platelet Estimate Plt Morphology Comment RBC Morphology Hold Blue Top Sodium Potassium Chloride Carbon Dioxide Anion Gap BUN Creatinine Estim Creat Clear Calc Estimated GFR Random Glucose Calcium Magnesium Total Bilirubin Direct Bilirubin AST ALT Alkaline Phosphatase Troponin I High Sens 42.4 H B-Natriuretic Peptide 520 H Total Protein Albumin Urine Color Urine Appearance Urine pH Ur Specific [place] Urine Protein Urine Glucose (UA) Urine Ketones Urine Blood Urine Nitrite Ur Leukocyte Esterase Coronavirus (PCR) NEGATIVE Influenza Type A (PCR) NEGATIVE Influenza Type B (PCR) NEGATIVE RSV RNA Qual (PCR) NEGATIVE 09/28/20 09/29/20 21:14 01:30 WBC RBC Hgb Hct MCV MCH MCHC RDW Plt Count MPV Immature Gran % (Auto) Neut % (Auto) Lymph % (Auto) [place] % (Auto) Eos % (Auto) Baso % (Auto) Lymph # (Auto) [place] # (Auto) Eos # (Auto) Baso # (Auto) Abs Immat Gran (auto) Absolute Neuts (auto) Absolute Nucleated RBC Nucleated RBC % (auto) Neutrophils % (Manual) Band Neutrophils % Lymphocytes % (Manual) Monocytes % (Manual) Abs Neuts (Manual) Lymphocytes # (Manual) Monocytes # (Manual) Platelet Estimate Plt Morphology Comment RBC Morphology Hold Blue Top Sodium Potassium Chloride Carbon Dioxide Anion Gap BUN Creatinine Estim Creat Clear Calc Estimated GFR Random Glucose Calcium Magnesium Total Bilirubin Direct Bilirubin AST ALT Alkaline Phosphatase Troponin I High Sens 46.8 H B-Natriuretic Peptide Total Protein Albumin Urine Color YELLOW Urine Appearance CLEAR Urine pH 6.0 Ur Specific [place] 1.025 Urine Protein NEG Urine Glucose (UA) NEG Urine Ketones 5 Urine Blood NEG Urine Nitrite NEG Ur Leukocyte Esterase NEG Coronavirus (PCR) Influenza Type A (PCR) Influenza Type B (PCR) RSV RNA Qual (PCR) ECG Attestation: I personally reviewed and interpreted this ECG as follows: Interpretation: EKG shows sinus rhythm at 69/Min with left ventricular hypertrophy/strain pattern. Imaging Radiologist's impression: Impressions Chest X-Ray 09/28/20 14:30 IMPRESSION: Unremarkable examination. Assessment and Plan (1) Hypertensive urgency: Status: Acute (2) ST segment changes on electrocardiogram: Status: Acute (3) Elevated troponin: Status: Acute Blood pressure trends were reviewed. Initial blood pressure upon arrival was 219/124 mm Hg. Most recent blood pressure is much better than that. Labs show an elevated cardiac BNP of 520. Troponins are slightly elevated at 42 and 46. EKG shows left ventricular hypertrophy/strain pattern. Most likely he has had longstanding hypertension that has been undiagnosed. He has received labetalol and hydralazine. He has been commenced on lisinopril 5 mg daily. He is likely going to need much higher doses. Blood pressure is currently controlled because of the IV medicines he received in the last 24 hours but most likely to rebound. Then we can go up on the lisinopril to a higher dose and then possibly use amlodipine as well. Echocardiogram for cardiac function assessment. We will follow.
--- NOTE | 2020-09-29 12:10 | PC.NURSE ---
BP'S INCREASING. PT STATES HE FEELS FINE. DENIES CP, DIZZINESS, BLURRED VISION, HEADACHE, ST ON MONITOR. THIS RN TO NOTIFY HOSPITALIST
[2020-09-29] MEDS: amLODIPine Besylate 10 MG TABLET PO (12:56)
--- NOTE | 2020-09-29 16:01 | MHC.CM.PN ---
Met with patient in regards to d/c planning. Patient lives with his , ambulates independently and had no services prior to coming to the hospital. Patient does not have a PCP. Patient states I never needed one. List of PCP's provided. Explained patient would have to list the provider as the PCP with his insurance company and then make an appointment. Patient verbalized understanding. Patient's will transport him home when medically stable. Patient requesting to be placed in a room upstairs so he can shower. 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 Patient requesting to be discharged home because I feel fine. Dr Ibarra notified. Continue to monitor for d/c needs.
--- NOTE | 2020-09-29 16:10 | PC.NURSE ---
Pt asking to leave. Case Management has recently been in touch with Hospitalist who states that pt should continue for mointoring. This rn to inform patient.
--- NOTE | 2020-09-29 17:01 | PC.NURSE ---
hospitalist at bedside. pt has blunt understanding of plan of care. will stay here. hyn meds will be altered.
[2020-09-29] MEDS: 0.9 % Sodium Chloride Flush 3 ML SYRINGE IVFLUSH (17:59)
[2020-09-29] MEDS: LORazepam 0.5 MG TABLET PO (17:59)
[2020-09-29] MEDS: traZODone HCL 25 MG HALFTAB PO (22:52)
[2020-09-30] VITALS (18 sets, daily range): BP systolic 146–190; BP diastolic 79–120; PULSE 94–110; RESP 18–26; TEMP 36.5–37.3; O2SAT 96–98; BMI 32.3
[2020-09-30] MEDS: 0.9 % Sodium Chloride Flush 3 ML SYRINGE IVFLUSH ×4 (00:43→20:11)
[2020-09-30] MEDS: hydrALAZINE HCl 20 MG/ML VIAL 10 MG IVPUSH (01:20)
--- NOTE | 2020-09-30 02:44 | PC.NURSE ---
Pt had a BP of 190/120 manually. @ 0045 on 09/30/20. Md was notified hydralazine was ordered. BP after an hr was 156/85.
[2020-09-30] MEDS: Enoxaparin Sodium 40 MG/0.4 ML SYRINGE SUBCUT (05:45)
[2020-09-30 06:28] LABS: MANUAL DIFF FLAG NO
[2020-09-30 06:47] LABS: Basophils Percent Auto 0.2 % (0-2); Eosinophils Absolute Auto 0.1 X10*3/uL (0.0-0.4); Eosinophils Percent Auto 0.6 % (0-4); Hematocrit 50.8 % (42-52); Imm Gran Abs Auto 0.03 X10*3/uL (0.00-0.03); Imm Gran Pct Auto 0.4 % (0.0-0.4); Lymphocytes Absolute Auto 1.4 X10*3/uL (1.2-4.9); Lymphocytes Percent Auto 17.5 % (20-40); Mean Corpuscular HGB Conc 33.5 g/dl (31.0-36.0); Mean Corpuscular Volume 86.5 fL (80-98); Mean Platelet Volume 12.2 fL (9.4-12.4); Monocytes Absolute Auto 0.7 X10*3/uL (0.1-1.2); Monocytes Percent Auto 8.5 % (2-11); Neutrophils Absolute Auto 5.9 X10*3/uL (2.0-8.3); Neutrophils Percent Auto 72.8 % (45-73); Platelet Count 183 X10*3/uL (160-400); Red Blood Count 5.87 X10*6/uL (4.60-5.80); Red Cell Distribution Width 13.5 % (11.0-16.0); White Blood Count 8.1 X10*3/uL (4.8-10.8)
[2020-09-30 07:24] LABS: Blood Urea Nitrogen 15 mg/dL (9-16); Creatinine Clr Calc Pharmacy 110.4; Estimated Glomerular Filt Rate > 60; Glucose Random 99 mg/dL (60-115)
[2020-09-30 07:43] LABS: Anion Gap 15 (12-20); Calcium 9.3 mg/dL (8.4-10.2); Carbon Dioxide 26 mmol/L (22-29); Chloride 103 mmol/L (96-108); Potassium 4.2 mmol/l (3.3-5.1); Sodium 140 mmol/L (135-145)
[2020-09-30] MEDS: amLODIPine Besylate 10 MG TABLET PO (08:39)
--- NOTE | 2020-09-30 10:32 | PC.NURSE ---
Pt BP 168/103 at 0800, pt medicated with 10mg Norvasc and 5mg Lisinopril, pt BP rechecked at 1008 and found to be 188/96, MD Ibarra made aware.
--- NOTE | 2020-09-30 13:10 | MHC.CM.PN ---
DP Male 45 dx hypertensive emergency. DP is home no services. Pt will arrange for transportation. CM will follow.
--- NOTE | 2020-09-30 15:06 | HO.PM.IMPN ---
Subjective Subjective Date of Service: 09/30/20 Interval History: htn uncontrolled Physical Exam Vital Signs: Vital Signs: Last Vital Signs Temp 97.9 F 09/30/20 12:00 Pulse 100 09/30/20 12:00 Resp 26 H 09/30/20 12:00 BP 171/104 H 09/30/20 12:00 Pulse Ox 97 09/30/20 12:00 Body Mass Index 32.3 Physical exam: Consideration: not in acute distress, pleasant. HEENT: Neck supple Eyes: Anicteric, no discharge. Cvs: rrr, [id number] , no murmur res: clear to auscultation ,no rhonchii or wheezing abd: no rebound or guarding ,nt, bs present. ext pulses present , no cyanosis neuro: axo3 , nonfocal. Objective Data Current Medications Generic Name Dose Route Start Last Admin Trade Name Freq PRN Reason Stop Dose Admin Acetaminophen 650 mg 09/29/20 06:23 Acetaminophen 325 Mg Tablet PO Q6H PRN Pain, Mild (Pain Scale 1-3) Amlodipine Besylate 10 mg 09/29/20 13:00 09/30/20 08:39 Amlodipine Besylate 10 Mg Tablet PO 10 mg DAILY [facility] Administration Protocol Docusate Sodium 100 mg 09/29/20 06:23 Docusate Sodium 100 Mg Capsule PO DAILY PRN Constipation Enoxaparin Sodium 40 mg 09/29/20 06:30 09/30/20 05:45 Enoxaparin Sodium 40 Mg/0.4 Ml Syringe SUBCUT 40 mg Q24H [facility] Administration Lisinopril 5 mg 09/29/20 09:00 09/30/20 08:39 Lisinopril 5 Mg Tablet PO 5 mg DAILY [facility] Administration Protocol Ondansetron HCl 4 mg 09/29/20 06:23 Ondansetron Hcl 4 Mg/2 Ml Vial IVPUSH Q8H PRN Nausea and Vomiting Sodium Chloride 3 ml 09/29/20 08:00 09/30/20 08:39 0.9 % Sodium Chloride Flush 3 Ml Syringe IVFLUSH 3 ml QSHIFT [facility] Administration Labs CBC & Chem 7: 09/30/20 06:16 10/02/20 09:13 Assessment and Plan (1) Hypertensive cardiomyopathy: Status: Acute Assessment and Plan: 1. uncontrolled HTn: initial blood pressure upon arrival was 219/124 mm Hg. Most recent blood pressure is much better than that but still high. Labs show an elevated cardiac BNP of 520. Troponins are slightly elevated at 42 and 46. EKG shows left ventricular hypertrophy/strain pattern. Echocardiogram with mild LV dysfunction with LVEF 45-50%; severe LVH. plan:Most likely he has had longstanding hypertension that has been undiagnosed. Continue lisinopril to 20 mg daily and amlodipine 10 mg daily. Patient refuses for subQ Lovenox he said his walking around and does not want DVT prophylaxis.
--- NOTE | 2020-09-30 16:07 | P.PNCA_ITS ---
Subjective Subjective Date of Service: 09/30/20 Interval history: Follow-up of uncontrolled hypertension. He states that he feels okay. No specific cardiac complaints like angina or shortness of breath at this time. He is not getting any dizziness or syncopal episodes from the medications. Review of Systems Review of Systems Yes all other systems are reviewed and are negative Cardiovascular: Reports no additional cardiovascular complaints, Denies chest pain, Denies chest pain at rest, Denies chest pain with activity, Denies syncope, Denies rapid heart rate, Denies pedal edema, Denies edema, Denies leg edema, Denies lightheadedness, Denies dyspnea and Denies dyspnea on exertion Respiratory: Denies dyspnea and Denies dyspnea on exertion Denies syncope Physical Exam Vital Signs: Last Vital Signs Temp 99.2 F 09/30/20 15:16 Pulse 110 H 09/30/20 15:16 Resp 18 09/30/20 15:16 BP 170/96 H 09/30/20 15:16 Pulse Ox 98 09/30/20 15:16 Body Mass Index 32.3 Const General: cooperative, comfortable and no acute distress Orientation/consciousness: patient oriented x3 HENMT Other: Unremarkable Neck Neck: Yes normal visual inspection Chest Chest palpation & inspection: normal inspection of the chest Resp Auscultation: clear to auscultation bilaterally, no crackles and no wheezes Cardio Jugular venous distension: no JVD Palpation: normal PMI Heart sounds: S1 normal heart sound present, S2 normal heart sound present, no gallops, Murmur heart sound present systolic early, I/ and at the right sterna l border and no rubs GI Palpation (GI): Soft to palpation Back/Spine/Pelvis Other: unremarkable Skin General skin exam: no rashes or lesions noted Neuro General: patient oriented x3 Extrem General: Yes no clubbing, cyanosis or edema Psych Mental Status: mental status grossly normal Results Labs and Meds Result diagrams: 09/30/20 06:16 09/30/20 06:16 Lab results: Laboratory Results - last 24 hr 09/30/20 09/30/20 06:16 06:16 WBC 8.1 RBC 5.87 H Hgb 17.0 Hct 50.8 MCV 86.5 MCH 29.0 MCHC 33.5 RDW 13.5 Plt Count 183 MPV 12.2 Immature Gran % (Auto) 0.4 Neut % (Auto) 72.8 Lymph % (Auto) 17.5 L Clare % (Auto) 8.5 Eos % (Auto) 0.6 Baso % (Auto) 0.2 Lymph # (Auto) 1.4 Clare # (Auto) 0.7 Eos # (Auto) 0.1 Baso # (Auto) 0.0 Abs Immat Gran (auto) 0.03 Absolute Neuts (auto) 5.9 Absolute Nucleated RBC 0.000 Nucleated RBC % (auto) 0.0 Sodium 140 Potassium 4.2 D Chloride 103 Carbon Dioxide 26 Anion Gap 15 BUN 15 Creatinine 1.00 Estim Creat Clear Calc 110.4 Estimated GFR > 60 Random Glucose 99 Calcium 9.3 Progress Note: A&P Assessment and plan (1) Hypertensive urgency: Status: Acute (2) ST segment changes on electrocardiogram: Status: Acute (3) Elevated troponin: Status: Acute (4) Hypertensive cardiomyopathy: Status: Acute Assessment and Plan: Blood pressure trends were reviewed. Initial blood pressure upon arrival was 219/124 mm Hg. Most recent blood pressure is much better than that but still high. Labs show an elevated cardiac BNP of 520. Troponins are slightly elevated at 42 and 46. EKG shows left ventricular hypertrophy/strain pattern. Echocardiogram with mild LV dysfunction with LVEF 45-50%; severe LVH. Most likely he has had longstanding hypertension that has been undiagnosed. Can increase the dosage of lisinopril to 20 mg daily. He is already on amlodipine 10 mg daily. Fall Risk Details Current Medications: Current Medications Generic Name Dose Route Start Last Admin Trade Name Freq PRN Reason Stop Dose Admin Acetaminophen 650 mg 09/29/20 06:23 Acetaminophen 325 Mg Tablet PO Q6H PRN Pain, Mild (Pain Scale 1-3) Amlodipine Besylate 10 mg 09/29/20 13:00 09/30/20 08:39 Amlodipine Besylate 10 Mg Tablet PO 10 mg DAILY GENESIS Administration Protocol Docusate Sodium 100 mg 09/29/20 06:23 Docusate Sodium 100 Mg Capsule PO DAILY PRN Constipation Enoxaparin Sodium 40 mg 09/29/20 06:30 09/30/20 05:45 Enoxaparin Sodium 40 Mg/0.4 Ml Syringe SUBCUT 40 mg Q24H GENESIS Administration Lisinopril 5 mg 09/29/20 09:00 09/30/20 08:39 Lisinopril 5 Mg Tablet PO 5 mg DAILY GENESIS Administration Protocol Ondansetron HCl 4 mg 09/29/20 06:23 Ondansetron Hcl 4 Mg/2 Ml Vial IVPUSH Q8H PRN Nausea and Vomiting Sodium Chloride 3 ml 09/29/20 08:00 09/30/20 08:39 0.9 % Sodium Chloride Flush 3 Ml Syringe IVFLUSH 3 ml QSHIFT GENESIS Administration Time Spent With Patient Time: Total time spent is greater than 50% in coordination of care (as do cumented) at patient's floor/unit and/or counseling patient: Time with patient: less than 15 minutes
[2020-10-01] VITALS (8 sets, daily range): BP systolic 134–180; BP diastolic 82–100; PULSE 85–107; RESP 18; TEMP 36.2–37.1; O2SAT 96–98
[2020-10-01] MEDS: Enoxaparin Sodium 40 MG/0.4 ML SYRINGE SUBCUT (05:57)
[2020-10-01] MEDS: amLODIPine Besylate 10 MG TABLET PO (09:05)
[2020-10-01] MEDS: LORazepam 0.5 MG TABLET PO (09:05)
[2020-10-01] MEDS: 0.9 % Sodium Chloride Flush 3 ML SYRINGE IVFLUSH ×2 (09:07→15:12)
[2020-10-01 09:44] LABS: Anion Gap 13 (12-20); Blood Urea Nitrogen 23 mg/dL (9-16); Calcium 9.8 mg/dL (8.4-10.2); Carbon Dioxide 27 mmol/L (22-29); Chloride 104 mmol/L (96-108); Creatinine Clr Calc Pharmacy 93.6; Estimated Glomerular Filt Rate > 60; Glucose Random 96 mg/dL (60-115); Potassium 5.1 mmol/l (3.3-5.1); Sodium 139 mmol/L (135-145)
[2020-10-02 04:55] VITALS: BP 168/88; PULSE 96; RESP 18; TEMP 36.6; O2SAT 98
[2020-10-02] MEDS: 0.9 % Sodium Chloride Flush 3 ML SYRINGE IVFLUSH (08:31)
[2020-10-02] MEDS: amLODIPine Besylate 10 MG TABLET PO (08:31)
[2020-10-02 08:35] VITALS: PULSE 94; RESP 20; TEMP 36.7; O2SAT 97
[2020-10-02 10:22] LABS: Anion Gap 13 (12-20); Blood Urea Nitrogen 23 mg/dL (9-16); Calcium 9.4 mg/dL (8.4-10.2); Carbon Dioxide 27 mmol/L (22-29); Chloride 101 mmol/L (96-108); Creatinine Clr Calc Pharmacy 104.2; Estimated Glomerular Filt Rate > 60; Glucose Random 91 mg/dL (60-115); Potassium 4.5 mmol/l (3.3-5.1); Sodium 136 mmol/L (135-145)
[2020-10-02] MEDS: hydroCHLOROthiazide 12.5 MG TABLET PO (11:30)
--- NOTE | 2020-10-02 11:32 | MHC.CM.PN ---
dc plan home no servcies
--- NOTE | 2020-10-02 11:36 | PM.DS ---
DS: Providers Provider Date of Service: 10/02/20 Date of admission: 09/29/20 06:23 Primary care physician: None Physician Consults: 09/29/20 06:23 Consult to Cardiology Routine Consulting Provider: Lexx Banks Reason for consultation: Elevated trop, hypertensive emergency with elevated BNP , chest pain Has provider been notified: No DS: Diagnosis Discharge Diagnosis (1) Hypertensive cardiomyopathy: Status: Acute DS: Medications Discharge Medications Home Medications: Home Medications Medication Instructions Recorded Confirmed No Known Home Meds 09/29/20 09/29/20 DS: Summary Hospital Course Hospital Course: Chief Complaint: hypertension This is a 45-year-old male with no significant past medical history who presents to the hospital after a visit to urgent care for routine COVID test to return to work found him to be hypertensive. Patient reports that he has not been to a doctor since he was a teenager. He has has been having complaints of shortness of breath on exertion and fatigue but otherwise has no lower extremity swelling, no orthopnea, no PND, he has no headache, no change in vision, no chest pain, no palpitations, he has no dizziness, no urinary symptoms, no suprapubic or flank pain. Per urgent care report patient had a blood pressure of 200/124 on the arrival to their office. On arrival to our ED patient had blood pressure 178/99, heart rate of 82, respiratory rate of 16, satting 97% on room air. He received multiple doses of PO antihypertensive, and also receive nitro paste as well as IV hydralazine with improvement of his BP Labs sig for trop of 42.4->46.8, and BNP of 520 CXR unremarkable EKG shows ST depressions and t-wave inversions in the lateral leads [id number] Past medical history: Denies Past surgical history: Denies Family history: Denies Hospital course:Patient was admitted due to elevated blood pressure and some ECG changes with mild increase in troponin. He has not been on Blood pressure medicines before this. He likely has previously undiagnosed HTN. He is started on Lisinopril and titrated up to 20 daily and Norvasc 10 and HCTZ 12. 5 mg. Cardiology saw him and think ECG changes are due to uncontrolled HTN. Echo showed no wall motion abnormalities (- The left ventricular systolic function is mildly decreased. The visually estimated ejection fraction is between 45-50%. - There is severely increased left ventricular wall thickness. - No obvious valvular pathology seen on this study. and no further work up at this time. Blood pressure is now much better. He is ask to check BP at home and follow up with PCP for further blood pressure monitoring and medication adjustement. Social history: Comes from home, former tobacco user, currently denies tobacco alcohol or illicit drugs Time Spent with Patient Time attestation: Total time spent providing and/or coordinating discharge services: Discharge coordination time: Greater than 30 minutes Physical Exam Vital Signs: Vital Signs: Last Vital Signs Temp 98.0 F 10/02/20 08:35 Pulse 94 10/02/20 08:35 Resp 20 10/02/20 08:35 BP 168/88 H 10/02/20 04:55 Pulse Ox 97 10/02/20 08:35 Body Mass Index 32.3 General: AO X 3, no acute distress Resp: CTA bilateral CVS: S1,S2,RRR GI: +BS, NT, no distention Skin: No rash Neuro: motor grossly intact Psych: appropriate affect DS: Data Data Completed and Pending Labs on day of discharge: Laboratory Tests 09/28/20 09/28/20 09/28/20 16:17 16:17 16:17 WBC 8.0 RBC 5.72 Hgb 16.6 Hct 49.7 MCV 86.9 MCH 29.0 MCHC 33.4 RDW 13.2 Plt Count 180 MPV 12.4 Immature Gran % (Auto) Cancelled Neut % (Auto) Cancelled Lymph % (Auto) Cancelled Rush % (Auto) Cancelled Eos % (Auto) Cancelled Baso % (Auto) Cancelled Lymph # (Auto) Cancelled Rush # (Auto) Cancelled Eos # (Auto) Cancelled Baso # (Auto) Cancelled Abs Immat Gran (auto) Cancelled Absolute Neuts (auto) Cancelled Absolute Nucleated RBC 0.000 Nucleated RBC % (auto) 0.0 Neutrophils % (Manual) 75 H Band Neutrophils % 0 L Lymphocytes % (Manual) 18 L Monocytes % (Manual) 7 Abs Neuts (Manual) 6.0 Lymphocytes # (Manual) 1.4 Monocytes # (Manual) 0.6 Platelet Estimate NORMAL Plt Morphology Comment NORMAL RBC Morphology NORMAL Hold Blue Top SEE NOTE Sodium 139 Potassium 3.4 Chloride 103 Carbon Dioxide 27 Anion Gap 12 BUN 16 Creatinine 1.16 Estim Creat Clear Calc 95.2 Estimated GFR > 60 Random Glucose 98 Calcium 8.8 Magnesium 2.3 Total Bilirubin 0.3 Direct Bilirubin 0.2 AST 16 ALT 9 Alkaline Phosphatase 82 Troponin I High Sens B-Natriuretic Peptide Total Protein 7.2 Albumin 4.3 Urine Color Urine Appearance Urine pH Ur Specific [place] Urine Protein Urine Glucose (UA) Urine Ketones Urine Blood Urine Nitrite Ur Leukocyte Esterase Coronavirus (PCR) Influenza Type A (PCR) Influenza Type B (PCR) RSV RNA Qual (PCR) 09/28/20 09/28/20 09/28/20 16:17 16:17 16:17 WBC RBC Hgb Hct MCV MCH MCHC RDW Plt Count MPV Immature Gran % (Auto) Neut % (Auto) Lymph % (Auto) Rush % (Auto) Eos % (Auto) Baso % (Auto) Lymph # (Auto) Rush # (Auto) Eos # (Auto) Baso # (Auto) Abs Immat Gran (auto) Absolute Neuts (auto) Absolute Nucleated RBC Nucleated RBC % (auto) Neutrophils % (Manual) Band Neutrophils % Lymphocytes % (Manual) Monocytes % (Manual) Abs Neuts (Manual) Lymphocytes # (Manual) Monocytes # (Manual) Platelet Estimate Plt Morphology Comment RBC Morphology Hold Blue Top Sodium Potassium Chloride Carbon Dioxide Anion Gap BUN Creatinine Estim Creat Clear Calc Estimated GFR Random Glucose Calcium Magnesium Total Bilirubin Direct Bilirubin AST ALT Alkaline Phosphatase Troponin I High Sens 42.4 H B-Natriuretic Peptide 520 H Total Protein Albumin Urine Color Urine Appearance Urine pH Ur Specific [place] Urine Protein Urine Glucose (UA) Urine Ketones Urine Blood Urine Nitrite Ur Leukocyte Esterase Coronavirus (PCR) NEGATIVE Influenza Type A (PCR) NEGATIVE Influenza Type B (PCR) NEGATIVE RSV RNA Qual (PCR) NEGATIVE 09/28/20 09/29/20 09/30/20 21:14 01:30 06:16 WBC 8.1 RBC 5.87 H Hgb 17.0 Hct 50.8 MCV 86.5 MCH 29.0 MCHC 33.5 RDW 13.5 Plt Count 183 MPV 12.2 Immature Gran % (Auto) 0.4 Neut % (Auto) 72.8 Lymph % (Auto) 17.5 L [place] % (Auto) 8.5 Eos % (Auto) 0.6 Baso % (Auto) 0.2 Lymph # (Auto) 1.4 Rush # (Auto) 0.7 Eos # (Auto) 0.1 Baso # (Auto) 0.0 Abs Immat Gran (auto) 0.03 Absolute Neuts (auto) 5.9 Absolute Nucleated RBC 0.000 Nucleated RBC % (auto) 0.0 Neutrophils % (Manual) Band Neutrophils % Lymphocytes % (Manual) Monocytes % (Manual) Abs Neuts (Manual) Lymphocytes # (Manual) Monocytes # (Manual) Platelet Estimate Plt Morphology Comment RBC Morphology Hold Blue Top Sodium Potassium Chloride Carbon Dioxide Anion Gap BUN Creatinine Estim Creat Clear Calc Estimated GFR Random Glucose Calcium Magnesium Total Bilirubin Direct Bilirubin AST ALT Alkaline Phosphatase Troponin I High Sens 46.8 H B-Natriuretic Peptide Total Protein Albumin Urine Color YELLOW Urine Appearance CLEAR Urine pH 6.0 Ur Specific [place] 1.025 Urine Protein NEG Urine Glucose (UA) NEG Urine Ketones 5 Urine Blood NEG Urine Nitrite NEG Ur Leukocyte Esterase NEG Coronavirus (PCR) Influenza Type A (PCR) Influenza Type B (PCR) RSV RNA Qual (PCR) 09/30/20 10/01/20 10/02/20 06:16 08:55 09:13 WBC RBC Hgb Hct MCV MCH MCHC RDW Plt Count MPV Immature Gran % (Auto) Neut % (Auto) Lymph % (Auto) Rush % (Auto) Eos % (Auto) Baso % (Auto) Lymph # (Auto) Rush # (Auto) Eos # (Auto) Baso # (Auto) Abs Immat Gran (auto) Absolute Neuts (auto) Absolute Nucleated RBC Nucleated RBC % (auto) Neutrophils % (Manual) Band Neutrophils % Lymphocytes % (Manual) Monocytes % (Manual) Abs Neuts (Manual) Lymphocytes # (Manual) Monocytes # (Manual) Platelet Estimate Plt Morphology Comment RBC Morphology Hold Blue Top Sodium 140 139 136 Potassium 4.2 D 5.1 D 4.5 Chloride 103 104 101 Carbon Dioxide 26 27 27 Anion Gap 15 13 13 BUN 15 23 H D 23 H Creatinine 1.00 1.18 1.06 Estim Creat Clear Calc 110.4 93.6 104.2 Estimated GFR > 60 > 60 > 60 Random Glucose 99 96 91 Calcium 9.3 9.8 9.4 Magnesium Total Bilirubin Direct Bilirubin AST ALT Alkaline Phosphatase Troponin I High Sens B-Natriuretic Peptide Total Protein Albumin Urine Color Urine Appearance Urine pH Ur Specific [place] Urine Protein Urine Glucose (UA) Urine Ketones Urine Blood Urine Nitrite Ur Leukocyte Esterase Coronavirus (PCR) Influenza Type A (PCR) Influenza Type B (PCR) RSV RNA Qual (PCR) Discharge Plan Discharge Anticipated Discharge Date/Time: 10/02/20 11:16 Patient Disposition: Home, Self-Care Referrals: Physician,None [Primary Care Provider] - Discharge Medications: New amlodipine 10 mg Tablet 10 mg PO DAILY Qty: 30 RF: 0 lisinopril 20 mg Tablet 20 mg PO DAILY Qty: 30 RF: 0 hydrochlorothiazide 12.5 mg Tablet 12.5 mg PO DAILY Qty: 30 RF: 0 Discharge Orders: Discharge Order (Routine); Ordered 10/02/20 Ordered By: Zion Ford Diet: advance to usual diet Activity on Discharge: As tolerated Stand Alone Forms: Patient Portal Discharge page, Work/School Release Visit Report Forms: Patient Portal Discharge page Care Plan Goals: Uncontrolled HTN Health Concerns: Elevated blood pressure Plan of Treatment: Take blood pressure medications as prescribed, follow up with your Doctor in a week, call for appointment. Get a home blood pressure machine or check at local supermarket or pharmacy. 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
== END 2020-10-02 12:56 | disposition home or self-care (01) | DRG 199 ==
LOC: HO.ED 23:22 → HO.EDOVER 09-29 06:50 → HO.IMC 09-29 23:34
PROVIDERS: Internal Medicine; Physician Assistant; Admitting Provider Internal Medicine; Emergency Provider Emergency Medicine; Visit Provider Internal Medicine
DX: I16.1 Hypertensive emergency (principal); I43 Cardiomyopathy in diseases classified elsewhere; I11.9 Hypertensive heart disease without heart failure; Z20.822 Contact with and (suspected) exposure to COVID-19; Z87.891 Personal history of nicotine dependence; Z79.899 Other long term (current) drug therapy
CPT/HCPCS: 0241U; 36415; 71045; 80048; 80076; 81003; 83735; 83880; 84484; 85007; 85025; 85027; 93005; 93306; 96374; 96375; 99285; J1650; J2405

== ENCOUNTER → 2020-10-30 08:29 | Outpatient (REF) | payer BC, SELFPAY ==
--- NOTE | 2020-10-30 08:48 | ECG_ITS ---
Test Reason : HYPERTENSIVE HEART Blood Pressure : / mmHG Vent. Rate : 081 BPM Atrial Rate : 081 BPM P-R Int : 154 ms QRS Dur : 100 ms QT Int : 356 ms P-R-T Axes : 062 030 057 degrees QTc Int : 413 ms Normal sinus rhythm Minimal voltage criteria for LVH, may be normal variant Nonspecific T wave abnormality Abnormal ECG When compared with ECG of 29-SEP-2020 00:14, ST no longer depressed in Lateral leads T wave inversion no longer evident in Lateral leads QT has shortened Referred By: Chey Vinson Electronically Signed By:Alessandro Hunt
== END ==
LOC: HO.CARD 08:29
PROVIDERS: PCP Nurse Practitioner Family; Visit Provider Nurse Practitioner Family
DX: I11.9 Hypertensive heart disease without heart failure (principal); I43 Cardiomyopathy in diseases classified elsewhere
CPT/HCPCS: 93005

== ENCOUNTER 2020-11-05 07:34 | Outpatient (REF) | payer BC, SELFPAY ==
[2020-11-05 07:59] LABS: MANUAL DIFF FLAG NO
[2020-11-05 08:01] LABS: Basophils Absolute Auto 0.1 X10*3/uL (0.0-0.2); Basophils Percent Auto 0.5 % (0-2); Eosinophils Absolute Auto 0.5 X10*3/uL (0.0-0.4); Eosinophils Percent Auto 5.3 % (0-4); Hematocrit 43.7 % (42-52); Hemoglobin 14.5 g/dl (14.0-18.0); Imm Gran Abs Auto 0.02 X10*3/uL (0.00-0.03); Imm Gran Pct Auto 0.2 % (0.0-0.4); Lymphocytes Absolute Auto 2.2 X10*3/uL (1.2-4.9); Lymphocytes Percent Auto 23.5 % (20-40); Mean Corpuscular HGB Conc 33.2 g/dl (31.0-36.0); Mean Corpuscular Hemoglobin 28.9 pg (27.0-33.0); Mean Corpuscular Volume 87.2 fL (80-98); Mean Platelet Volume 11.8 fL (9.4-12.4); Monocytes Absolute Auto 0.6 X10*3/uL (0.1-1.2); Monocytes Percent Auto 6.8 % (2-11); Neutrophils Percent Auto 63.7 % (45-73); Platelet Count 212 X10*3/uL (160-400); Red Blood Count 5.01 X10*6/uL (4.60-5.80); White Blood Count 9.4 X10*3/uL (4.8-10.8)
[2020-11-05 09:19] LABS: Anion Gap 15 (12-20); Blood Urea Nitrogen 23 mg/dL (9-16); Calcium 9.7 mg/dL (8.4-10.2); Carbon Dioxide 28 mmol/L (22-29); Chloride 105 mmol/L (96-108); Cholesterol 183 mg/dL; Estimated Glomerular Filt Rate > 60; Glucose Fasting 101 mg/dL (60-99); HDL Cholesterol 47 mg/dL; LDL Cholesterol Calculated 127 mg/dl; Potassium 4.7 mmol/L (3.3-5.1); Sodium 143 mmol/L (135-145); Triglycerides 47 mg/dL
== END 2020-11-05 07:35 | disposition home or self-care (01) ==
LOC: HO.LAB 07:34
PROVIDERS: PCP Nurse Practitioner Family; Visit Provider Nurse Practitioner Family
DX: I11.9 Hypertensive heart disease without heart failure (principal); I43 Cardiomyopathy in diseases classified elsewhere
CPT/HCPCS: 36415; 80048; 80061; 85025

== ENCOUNTER 2021-02-05 09:03 | Outpatient (REF) | payer BC, SELFPAY ==
[2021-02-05 10:02] LABS: MANUAL DIFF FLAG NO
[2021-02-05 10:21] LABS: Basophils Absolute Auto 0.1 X10*3/uL (0.0-0.2); Basophils Percent Auto 0.5 % (0-2); Eosinophils Absolute Auto 0.3 X10*3/uL (0.0-0.4); Eosinophils Percent Auto 3.3 % (0-4); Hematocrit 43.6 % (42-52); Hemoglobin 14.2 g/dl (14.0-18.0); Imm Gran Abs Auto 0.02 X10*3/uL (0.00-0.03); Imm Gran Pct Auto 0.2 % (0.0-0.4); Lymphocytes Absolute Auto 1.2 X10*3/uL (1.2-4.9); Lymphocytes Percent Auto 12.9 % (20-40); Mean Corpuscular HGB Conc 32.6 g/dl (31.0-36.0); Mean Corpuscular Hemoglobin 29.5 pg (27.0-33.0); Mean Corpuscular Volume 90.5 fL (80-98); Mean Platelet Volume 11.8 fL (9.4-12.4); Monocytes Absolute Auto 0.6 X10*3/uL (0.1-1.2); Monocytes Percent Auto 6.6 % (2-11); Neutrophils Percent Auto 76.5 % (45-73); Platelet Count 231 X10*3/uL (160-400); Red Blood Count 4.82 X10*6/uL (4.60-5.80); Red Cell Distribution Width 12.9 % (11.0-16.0); White Blood Count 9.1 X10*3/uL (4.8-10.8)
[2021-02-05 10:39] LABS: Alanine Aminotransferase 23 U/L (0-40); Albumin Level 4.4 g/dL (3.5-5.0); Alkaline Phosphatase 65 U/L (39-117); Anion Gap 14 (12-20); Aspartate Amino Transferase 19 U/L (5-37); Bilirubin Total 0.4 mg/dL (0.0-1.0); Blood Urea Nitrogen 22 mg/dL (9-16); Calcium 9.8 mg/dL (8.4-10.2); Carbon Dioxide 27 mmol/L (22-29); Chloride 104 mmol/L (96-108); Cholesterol 193 mg/dL; Estimated Glomerular Filt Rate > 60; Glucose Fasting 114 mg/dL (60-99); HDL Cholesterol 51 mg/dL; LDL Cholesterol Calculated 134 mg/dl; Potassium 4.6 mmol/L (3.3-5.1); Sodium 140 mmol/L (135-145); Total Protein 7.3 g/dL (6.5-8.0); Triglycerides 41 mg/dL
[2021-02-05 11:01] LABS: Thyroid Stimulating Hormone 0.56 uIU/mL (0.32-4.0)
== END 2021-02-05 09:04 | disposition home or self-care (01) ==
LOC: HO.LAB 09:03
PROVIDERS: PCP Internal Medicine; Visit Provider Internal Medicine
DX: Z00.00 Encounter for general adult medical examination without abnormal findings (principal); E03.9 Hypothyroidism, unspecified; E11.9 Type 2 diabetes mellitus without complications
CPT/HCPCS: 36415; 80053; 80061; 84443; 85025

== ENCOUNTER 2021-09-23 10:29 | Emergency (ER) | payer BC, SELFPAY ==
--- NOTE | ~2021-09-23 | XR_ITS ---
EXAMINATION: XR CHEST CLINICAL INFORMATION: SOB. Covid positive. COMPARISON: None TECHNIQUE: 2 views of the chest were obtained. FINDINGS: No significant abnormality is noted involving the heart, lungs, mediastinum, bony thorax or soft tissues. XR/XR chest 2V IMPRESSION: Unremarkable chest exam.
[2021-09-23 11:14] VITALS: BP 168/102; PULSE 101; RESP 16; TEMP 36.6; O2SAT 98; BMI 30.1
--- NOTE | 2021-09-23 11:18 | ECG_ITS ---
Test Reason : General Medical Blood Pressure : / mmHG Vent. Rate : 094 BPM Atrial Rate : 094 BPM P-R Int : 156 ms QRS Dur : 090 ms QT Int : 360 ms P-R-T Axes : 058 023 077 degrees QTc Int : 450 ms Normal sinus rhythm Nonspecific T wave abnormality Borderline ECG When compared with ECG of 30-OCT-2020 08:55, No significant change was found Referred By: Generic ED Physician Electronically Signed By:DOMINGO REYNOLDS
--- NOTE | 2021-09-23 14:14 | ED.CHESTPAIN ---
HPI - Chest Pain General Chief Complaint: Dyspnea <DUC Meyer - Last Filed: 09/23/21 16:52> Stated Complaint: +covid chest pain dif breathing <DUC Meyer - Last Filed: 09/23/21 16:52> Time Seen by Provider: 09/23/21 14:07 <DUC Meyer - Last Filed: 09/23/21 16:52> Source: patient <DUC Meyer Last Filed: 09/23/21 16:52> Mode of arrival: ambulatory <DUC Meyer - Last Filed: 09/23/21 16:52> Limitations: no limitations <DUC Meyer Last Filed: 09/23/21 16:52> History of Present Illness HPI narrative: The patient presents to the emergency department for evaluation of acute central chest pain and shortness of breath. The patient reports that he was diagnosed with COVID-19 6 days ago. Patient reports that he developed central chest pressure with associated shortness of breath 3 days ago. The patient reports that the chest discomfort is somewhat worse with deep breathing. The patient reports an occasional productive cough. The patient reports a history of hypertension. He states his father of a heart attack at age 57. The patient denies any history of hyperlipidemia, diabetes or tobacco abuse. Patient reports the chest discomfort is worsened with lying flat. The patient denies any lower extremity edema. He denies any unilateral leg swelling. He denies any history of DVT or PE. Denies recent surgeries. Patient reports subjective fever 6 days ago when he was diagnosed with COVID-19. He denies fever associated with his chest discomfort over the past 3 days. Patient denies any radiation of the chest discomfort. He denies any history of coronary artery disease. <DUC Meyer - Last Filed: 09/23/21 16:52> Risk Factors Coronary artery disease risk factors: hypertension <DUC Meyer Last Filed: 09/23/21 16:52> Thoracic aortic dissection risk factors: none <DUC Meyer - Last Filed: 09/23/21 16:52> Related Data Home Medications: Previous Rx's Medication Instructions Recorded amlodipine 10 mg tablet 10 mg PO DAILY 90 Days #90 tab 05/21/21 aspirin 81 mg tablet,delayed 81 mg PO DAILY 60 Days #60 tab 05/21/21 release (Enteric Coated Aspirin) hydrochlorothiazide 12.5 mg tablet 12.5 mg PO DAILY 90 Days #90 tab 05/21/21 lisinopril 20 mg tablet 20 mg PO DAILY 90 Days #90 tab 05/21/21 acetaminophen 500 mg tablet 1,000 mg PO QID PRN #30 tab 09/23/21 ibuprofen 600 mg tablet 600 mg PO Q8H PRN #14 tab 09/23/21 <DUC Meyer - Last Filed: 09/23/21 16:52> Allergies/Adverse Reactions: Allergies Allergy/AdvReac Type Severity Reaction Status Date / Time seafood Allergy Hives Verified 02/05/21 08:24 <DUC Meyer - Last Filed: 09/23/21 16:52> Review of Systems Review of Systems: Review of systems are negative other than what was mentioned in the HPI. <DUC Meyer - Last Filed: 09/23/21 16:52> [facility] Past Medical History Medical History: Medical History (Updated 09/23/21 @ 16:52 by DUC Meyer) Hypertension <DUC Meyer - Last Filed: 09/23/21 16:52> Surgical History: Surgical History (Updated 02/05/21 @ 08:30 by JIGAR Islas) No pertinent past surgical history <DUC Meyer - Last Filed: 09/23/21 16:52> Family History Family History: Family History Mother Fibromyalgia Cancer <DUC Meyer - Last Filed: 09/23/21 16:52> Social History Social History: Social History (Updated 02/05/21 @ 08:31 by JIGAR Islas) Household Members: Spouse and Children Housing: House Do you presently have visiting nurse or other home services: No Alcohol intake: never Patient Tobacco Use Status: Never used Tobacco Second Hand Smoke Exposure: No Advance Directives: No Advance Directives Information Provided: No service: No Current occupational status: employed <DUC Meyer - Last Filed: 09/23/21 16:52> Physical Exam Vital Signs: Vital Signs: Last Vital Signs Temp 96.9 F 09/23/21 17:49 Pulse 107 H 09/23/21 17:49 Resp 17 09/23/21 17:49 BP 160/89 H 09/23/21 17:49 Pulse Ox 97 09/23/21 17:49 BMI result Body Mass Index 30.1 <DUC Meyer - Last Filed: 09/23/21 16:52> Vital Signs: Last Vital Signs Temp 96.9 F 09/23/21 17:49 Pulse 107 H 09/23/21 17:49 Resp 17 09/23/21 17:49 BP 160/89 H 09/23/21 17:49 Pulse Ox 97 09/23/21 17:49 BMI result Body Mass Index 30.1 <DUC West - Last Filed: 09/23/21 18:46> Const: General: cooperative, no acute distress and alert <DUC Meyer - Last Filed: 09/23/21 16:52> Nutritional Appearance: average body habitus <DUC Meyer - Last Filed: 09/23/21 16:52> Limitations: no limitations <DUC Meyer - Last Filed: 09/23/21 16:52> HENMT: Head: Yes normocephalic and Yes atraumatic <DUC Meyer - Last Filed: 09/23/21 16:52> Eyes: Conjunctivae: conjunctivae normal <DUC Meyer - Last Filed: 09/23/21 16:52> Neck: Neck: Yes supple <DUC Meyer - Last Filed: 09/23/21 16:52> Chest: Chest palpation & inspection: normal palpation of entire chest wall <DUC eMyer - Last Filed: 09/23/21 16:52> Resp: Effort & Inspection: normal respiratory effort and able to speak in complete sentences <DUC Meyer - Last Filed: 09/23/21 16:52> Auscultation: no crackles, no rales, no rhonchi and no wheezes <DUC Meyer - Last Filed: 09/23/21 16:52> Cardio: Rate: regular rate <DUC Meyer - Last Filed: 09/23/21 16:52> Rhythm: regular rhythm <DUC Meyer - Last Filed: 09/23/21 16:52> GI: Palpation (GI): Soft to palpation, nontender and no guarding <Lissy DUC Caballero Anuel Last Filed: 09/23/21 16:52> Skin: General skin exam: no rashes or lesions noted <Lissy NguyễnDUC morales Anuel Last Filed: 09/23/21 16:52> Extrem: Other: No palpable cords. No unilateral leg swelling. <Lissy DUC Caballero Anuel Last Filed: 09/23/21 16:52> General: Yes normal to inspection, No no calf tenderness and No edema <LissyDUC Devries Anuel Last Filed: 09/23/21 16:52> Psych: Appearance: grossly normal <Lissy NguyễnDUC morales Anuel Last Filed: 09/23/21 16:52> Course Course Course Narrative: The patient was evaluated for acute chest pain and shortness of breath. He recently tested positive for COVID-19 6 days ago. His chest pain and shortness of breath onset 3 days ago. The patient was noted to have a sepsis flag upon initial evaluation due to a slightly elevated heart rate of 101. The patient is afebrile and nontoxic appearing. He denies fever since the onset of his chest pain and shortness of breath. The possibility of sepsis was considered and deemed less likely. The patient has a known recent viral syndrome. His mild tachycardia is likely secondary to an acute viral syndrome. The possibilities of acute coronary syndrome, pulmonary embolism, pneumonia, pericarditis, myocarditis and acute coronary syndrome were all considered at this time. Chest x-ray, EKG and laboratory analysis were ordered. The patient's chest x-ray showed no acute cardiopulmonary process. His EKG showed a normal sinus rhythm with a rate of 94. The patient has maintained a normal oxygen saturation in the emergency department. He is in no respiratory distress. <DUC Meyer Anuel Last Filed: 09/23/21 16:52> Reevaluation(s) Reevaluation #1: The patient's initial troponin was 18.1. A repeat 3 hour troponin was ordered at this time. His D-dimer was negative. The patient was informed his laboratory results. He was treated with ibuprofen for his acute chest discomfort. The patient was signed out to Walter Hernandez PA-C pending repeat troponin, cardiology consultation and final disposition. <DUC Meyer - Last Filed: 09/23/21 16:52> The patient's initial troponin was 18.1. A repeat 3 hour troponin was ordered at this time. His D-dimer was negative. The patient was informed his laboratory results. He was treated with ibuprofen for his acute chest discomfort. The patient was signed out to Walter Hernandez PA-C pending repeat troponin, cardiology consultation and final disposition. Patient had a repeat troponin with no significant increase Case was discussed by text with wool supplier Dr. muñoz who agreed that patient was safe for discharge with a continuous chest pain coincident with the COVID infection a negative D-dimer a EKG that did not show any acute ischemic evidence and was same as previous and 2 troponins done 3 hours apart with going from 18-19 Well-appearing comfortable patient was discharged with diagnosis of COVID and chest pain to follow with primary doctor <DUC West - Last Filed: 09/23/21 18:46> MDM - Chest Pain Differential Diagnosis Differential diagnosis: Likely pneumothorax, atypical chest pain and costochondritis <DUC Meyer Last Filed: 09/23/21 16:52> Differential diagnosis: Pericarditis, myocarditis, pulmonary embolism, pleurisy, costochondritis, COVID-19, pneumonia, acute coronary syndrome <DUC Meyer Last Filed: 09/23/21 16:52> Medical Records Data Attestation: I reviewed the patient's medical records. <DUC Meyer - Last Filed: 09/23/21 16:52> Lab Data Result diagrams: : 09/23/21 14:28 09/23/21 14:28 <DUC Meyer Last Filed: 09/23/21 16:52> Labs: Lab Results 09/23/21 09/23/21 09/23/21 Range/Units 14:28 14:28 14:28 WBC 6.3 (4.8-10.8) X10*3/uL RBC 5.98 H (4.60-5.80) X10*6/uL Hgb 17.7 (14.0-18.0) g/dl Hct 51.3 (42.0-52.0) % MCV 85.8 (80.0-98.0) fL MCH 29.6 (27.0-33.0) pg MCHC 34.5 (31.0-36.0) g/dl RDW 12.9 (11.0-16.0) % Plt Count 157 L (160-400) X10*3/uL MPV 11.5 (9.4-12.4) fL Immature Gran % (Auto) 0.5 H (0.0-0.4) % Neut % (Auto) 58.7 (45-73) % Lymph % (Auto) 24.8 (20-40) % [place] % (Auto) 15.3 H (2-11) % Eos % (Auto) 0.5 (0-4) % Baso % (Auto) 0.2 (0-2) % Lymph # (Auto) 1.6 (1.2-4.9) X10*3/uL [place] # (Auto) 1.0 (0.1-1.2) X10*3/uL Eos # (Auto) 0.0 (0.0-0.4) X10*3/uL Baso # (Auto) 0.0 (0.0-0.2) X10*3/uL Abs Immat Gran (auto) 0.03 (0.00-0.03) X10*3/uL Absolute Neuts (auto) 3.7 (2.0-8.3) x10*3/uL Absolute Nucleated RBC 0.000 (0.0-0.012) X10*3/uL Nucleated RBC % (auto) 0.0 (0.0-0.2) /100WBC D-Dimer High Sensitivty < 150 NG/ML Sodium 137 (135-145) mmol/L Potassium 3.5 D (3.3-5.1) mmol/L Chloride 101 (96-108) mmol/L Carbon Dioxide 27 (22-29) mmol/L Anion Gap 13 (12-20) BUN 19 H (9-16) mg/dL Creatinine 1.21 (0.5-1.4) mg/dL Estim Creat Clear Calc 87.4 Estimated GFR > 60 Random Glucose 107 (60-115) mg/dL Calcium 9.8 (8.4-10.2) mg/dL Troponin I High Sens (<3.5-35.0) ng/L 09/23/21 09/23/21 Range/Units 14:28 17:25 WBC (4.8-10.8) X10*3/uL RBC (4.60-5.80) X10*6/uL Hgb (14.0-18.0) g/dl Hct (42.0-52.0) % MCV (80.0-98.0) fL MCH (27.0-33.0) pg MCHC (31.0-36.0) g/dl RDW (11.0-16.0) % Plt Count (160-400) X10*3/uL MPV (9.4-12.4) fL Immature Gran % (Auto) (0.0-0.4) % Neut % (Auto) (45-73) % Lymph % (Auto) (20-40) % [place] % (Auto) (2-11) % Eos % (Auto) (0-4) % Baso % (Auto) (0-2) % Lymph # (Auto) (1.2-4.9) X10*3/uL [place] # (Auto) (0.1-1.2) X10*3/uL Eos # (Auto) (0.0-0.4) X10*3/uL Baso # (Auto) (0.0-0.2) X10*3/uL Abs Immat Gran (auto) (0.00-0.03) X10*3/uL Absolute Neuts (auto) (2.0-8.3) x10*3/uL Absolute Nucleated RBC (0.0-0.012) X10*3/uL Nucleated RBC % (auto) (0.0-0.2) /100WBC D-Dimer High Sensitivty NG/ML Sodium (135-145) mmol/L Potassium (3.3-5.1) mmol/L Chloride (96-108) mmol/L Carbon Dioxide (22-29) mmol/L Anion Gap (12-20) BUN (9-16) mg/dL Creatinine (0.5-1.4) mg/dL Estim Creat Clear Calc Estimated GFR Random Glucose (60-115) mg/dL Calcium (8.4-10.2) mg/dL Troponin I High Sens 18.1 19.6 (<3.5-35.0) ng/L <DUC Meyer - Last Filed: 09/23/21 16:52> Lab Results 09/23/21 09/23/21 09/23/21 Range/Units 14:28 14:28 14:28 WBC 6.3 (4.8-10.8) X10*3/uL RBC 5.98 H (4.60-5.80) X10*6/uL Hgb 17.7 (14.0-18.0) g/dl Hct 51.3 (42.0-52.0) % MCV 85.8 (80.0-98.0) fL MCH 29.6 (27.0-33.0) pg MCHC 34.5 (31.0-36.0) g/dl RDW 12.9 (11.0-16.0) % Plt Count 157 L (160-400) X10*3/uL MPV 11.5 (9.4-12.4) fL Immature Gran % (Auto) 0.5 H (0.0-0.4) % Neut % (Auto) 58.7 (45-73) % Lymph % (Auto) 24.8 (20-40) % [place] % (Auto) 15.3 H (2-11) % Eos % (Auto) 0.5 (0-4) % Baso % (Auto) 0.2 (0-2) % Lymph # (Auto) 1.6 (1.2-4.9) X10*3/uL [place] # (Auto) 1.0 (0.1-1.2) X10*3/uL Eos # (Auto) 0.0 (0.0-0.4) X10*3/uL Baso # (Auto) 0.0 (0.0-0.2) X10*3/uL Abs Immat Gran (auto) 0.03 (0.00-0.03) X10*3/uL Absolute Neuts (auto) 3.7 (2.0-8.3) x10*3/uL Absolute Nucleated RBC 0.000 (0.0-0.012) X10*3/uL Nucleated RBC % (auto) 0.0 (0.0-0.2) /100WBC D-Dimer High Sensitivty < 150 NG/ML Sodium 137 (135-145) mmol/L Potassium 3.5 D (3.3-5.1) mmol/L Chloride 101 (96-108) mmol/L Carbon Dioxide 27 (22-29) mmol/L Anion Gap 13 (12-20) BUN 19 H (9-16) mg/dL Creatinine 1.21 (0.5-1.4) mg/dL Estim Creat Clear Calc 87.4 Estimated GFR > 60 Random Glucose 107 (60-115) mg/dL Calcium 9.8 (8.4-10.2) mg/dL Troponin I High Sens (<3.5-35.0) ng/L 09/23/21 09/23/21 Range/Units 14:28 17:25 WBC (4.8-10.8) X10*3/uL RBC (4.60-5.80) X10*6/uL Hgb (14.0-18.0) g/dl Hct (42.0-52.0) % MCV (80.0-98.0) fL MCH (27.0-33.0) pg MCHC (31.0-36.0) g/dl RDW (11.0-16.0) % Plt Count (160-400) X10*3/uL MPV (9.4-12.4) fL Immature Gran % (Auto) (0.0-0.4) % Neut % (Auto) (45-73) % Lymph % (Auto) (20-40) % [place] % (Auto) (2-11) % Eos % (Auto) (0-4) % Baso % (Auto) (0-2) % Lymph # (Auto) (1.2-4.9) X10*3/uL [place] # (Auto) (0.1-1.2) X10*3/uL Eos # (Auto) (0.0-0.4) X10*3/uL Baso # (Auto) (0.0-0.2) X10*3/uL Abs Immat Gran (auto) (0.00-0.03) X10*3/uL Absolute Neuts (auto) (2.0-8.3) x10*3/uL Absolute Nucleated RBC (0.0-0.012) X10*3/uL Nucleated RBC % (auto) (0.0-0.2) /100WBC D-Dimer High Sensitivty NG/ML Sodium (135-145) mmol/L Potassium (3.3-5.1) mmol/L Chloride (96-108) mmol/L Carbon Dioxide (22-29) mmol/L Anion Gap (12-20) BUN (9-16) mg/dL Creatinine (0.5-1.4) mg/dL Estim Creat Clear Calc Estimated GFR Random Glucose (60-115) mg/dL Calcium (8.4-10.2) mg/dL Troponin I High Sens 18.1 19.6 (<3.5-35.0) ng/L <DUC West - Last Filed: 09/23/21 18:46> Imaging Data Chest x-ray: Attestation: I personally reviewed and interpreted this imaging study as follows: <DUC Meyer - Last Filed: 09/23/21 16:52> My impression: No acute cardiopulmonary process <DUC Meyer - Last Filed: 09/23/21 16:52> ECG Data ECG #1: ECG interpretation date: 09/23/21 <DUC Meyer - Last Filed: 09/23/21 16:52> ECG interpretation time: 14:34 <DUC Meyer - Last Filed: 09/23/21 16:52> Interpretation: Normal sinus rhythm rate of 94 <DUC Meyer Last Filed: 09/23/21 16:52> Discharge Plan Discharge Clinical Impression: Chest pain, COVID-19, Acute dyspnea <DUC Meyer - Last Filed: 09/23/21 16:52> Additional Instructions: Follow with primary care doctor No evidence of any acute heart issues or blood clots today COVID is very contagious so quarantine for 10 days and you can return to work what ever the protocol is on her job Return to the ER any worse condition or any concerns <DUC Meyer - Last Filed: 09/23/21 16:52> Prescriptions: New ibuprofen 600 mg tablet 600 mg PO Q8H PRN (Reason: pain) Qty: 14 RF: 0 acetaminophen 500 mg tablet 1,000 mg PO QID PRN (Reason: pain) Qty: 30 RF: 0 No Action amlodipine 10 mg tablet 10 mg PO DAILY 90 Days Qty: 90 RF: 8 aspirin [Enteric Coated Aspirin] 81 mg tablet,delayed release (DR/EC) 81 mg PO DAILY 60 Days Qty: 60 RF: 1 hydrochlorothiazide 12.5 mg tablet 12.5 mg PO DAILY 90 Days Qty: 90 RF: 0 lisinopril 20 mg tablet 20 mg PO DAILY 90 Days Qty: 90 RF: 0 <DUC Meyer - Last Filed: 09/23/21 16:52> Stand Alone Forms: Work/School Release <DCU Meyer - Last Filed: 09/23/21 16:52>
[2021-09-23 14:32] LABS: MANUAL DIFF FLAG NO
[2021-09-23 14:34] LABS: Basophils Percent Auto 0.2 % (0-2); Eosinophils Percent Auto 0.5 % (0-4); Hematocrit 51.3 % (42.0-52.0); Hemoglobin 17.7 g/dl (14.0-18.0); Imm Gran Abs Auto 0.03 X10*3/uL (0.00-0.03); Imm Gran Pct Auto 0.5 % (0.0-0.4); Lymphocytes Absolute Auto 1.6 X10*3/uL (1.2-4.9); Lymphocytes Percent Auto 24.8 % (20-40); Mean Corpuscular HGB Conc 34.5 g/dl (31.0-36.0); Mean Corpuscular Hemoglobin 29.6 pg (27.0-33.0); Mean Corpuscular Volume 85.8 fL (80.0-98.0); Mean Platelet Volume 11.5 fL (9.4-12.4); Monocytes Percent Auto 15.3 % (2-11); Neutrophils Absolute Auto 3.7 x10*3/uL (2.0-8.3); Neutrophils Percent Auto 58.7 % (45-73); Platelet Count 157 X10*3/uL (160-400); Red Blood Count 5.98 X10*6/uL (4.60-5.80); Red Cell Distribution Width 12.9 % (11.0-16.0); White Blood Count 6.3 X10*3/uL (4.8-10.8)
[2021-09-23 14:47] LABS: D Dimer High Sensitivity < 150 NG/ML
[2021-09-23 14:56] LABS: Anion Gap 13 (12-20); Blood Urea Nitrogen 19 mg/dL (9-16); Calcium 9.8 mg/dL (8.4-10.2); Carbon Dioxide 27 mmol/L (22-29); Chloride 101 mmol/L (96-108); Creatinine Clr Calc Pharmacy 87.4; Estimated Glomerular Filt Rate > 60; Glucose Random 107 mg/dL (60-115); Potassium 3.5 mmol/L (3.3-5.1); Sodium 137 mmol/L (135-145)
[2021-09-23 15:02] LABS: Troponin-I High Sensitivity 18.1 ng/L (<3.5-35.0)
[2021-09-23 17:49] VITALS: BP 160/89; PULSE 107; RESP 17; TEMP 36.1; O2SAT 97
[2021-09-23] MEDS: Ibuprofen 600 MG TABLET PO (17:53)
[2021-09-23 17:57] LABS: Troponin-I High Sensitivity 19.6 ng/L (<3.5-35.0)
== END 2021-09-23 18:48 | disposition home or self-care (01) ==
PROVIDERS: Physician Assistant Medical; Emergency Provider Emergency Medicine
DX: U07.1 COVID-19 (principal); R07.9 Chest pain, unspecified; R06.00 Dyspnea, unspecified; I10 Essential (primary) hypertension
CPT/HCPCS: 36415; 71046; 80048; 84484; 85025; 85379; 93005; 99283; 99284